=== PATIENT | male | born 1950 | race Caucasian/White ===

== ENCOUNTER → 2023-08-21 08:55 | Outpatient (REF) | payer MEDICARE, OTHER, SELFPAY ==
[2023-08-21 09:27] LABS: % Basophils 0.2 % (0-2); % Eosinophils 0.9 % (0-6); % Immature Granulocytes 0.4 % (0-0.5); % Lymphocytes 32.9 % (20.5-51.1); % Monocytes 8.1 % (1.7-9.3); % Neutrophils 57.5 % (42.2-75.2); Absolute Eosinophils 0.1 10^3/uL (0-0.7); Absolute Lymphocytes 1.9 10^3/uL (1.2-3.4); Absolute Monocytes 0.5 10^3/uL (0.1-0.6); Absolute Neutrophils 3.3 10^3/uL (1.4-6.5); Hematocrit 38.9 % (39.0-52.0); Hemoglobin 13.5 g/dL (13.0-18.0); Mean Corp Hgb Conc. 34.7 g/dL (33.0-37.0); Mean Corpuscular Hgb 30.9 pg (27.0-31.0); Mean Platelet Volume 10.1 fL (7.4-10.4); Nucleated Red Blood Cells % 0 % (-); Platelet Count 151 10^3/uL (130-400); Red Blood Cell Count 4.37 10^6/uL (4.70-6.10); Red Cell Dist. Width 12.6 % (11.5-14.5); White Blood Cell Count 5.7 10^3/uL (4.8-10.8)
[2023-08-21 09:31] LABS: Urine Albumin Negative (Neg - Trace); Urine Bilirubin Negative (Negative); Urine Character Clear (Clear); Urine Color Yellow; Urine Glucose Negative (Negative); Urine Ketone Negative (Negative); Urine Leukocyte Negative (Negative); Urine Nitrite Negative (Negative); Urine Occult Blood Negative (Negative); Urine Urobilinogen Negative (Neg - 1+)
[2023-08-21 10:25] LABS: Blood Urea Nitrogen 29 mg/dl (9-20); Calcium 9.5 mg/dl (8.4-10.2); Carbon Dioxide 27 mmol/L (22-30); Chloride 101 mmol/L (98-107); Glucose 101 mg/dl (70-99); Potassium 4.7 mmol/L (3.5-5.1); Sodium 138 mmol/L (135-145); eGFR > 60.00
[2023-08-21 10:57] LABS: PSA, Total - Diagnostic < 0.06 ng/ml (0.0-4.0)
== END ==
LOC: REG 08:55
PROVIDERS: ATTENDING PHYSICIAN Specialist; FAMILY PHYSICIAN Family Medicine
DX: R68.82 Decreased libido (principal); C61 Malignant neoplasm of prostate
CPT/HCPCS: 36415; 80048; 81003; 84153; 84403; 85025

== ENCOUNTER → 2023-11-13 09:42 | Outpatient (REF) | payer MEDICARE, OTHER, SELFPAY | LOC: RAD 09:42 | PROVIDERS: ATTENDING PHYSICIAN Family Medicine | DX: R06.00 Dyspnea, unspecified (principal) | CPT/HCPCS: 71046 ==

== ENCOUNTER 2024-01-30 10:35 | Day surgery (SDC) | payer MEDICARE, OTHER, SELFPAY ==
[2024-01-30 10:59] LABS: Hematocrit 39.5 % (39.0-52.0); Hemoglobin 14.1 g/dL (13.0-18.0); Mean Corp Hgb Conc. 35.7 g/dL (33.0-37.0); Mean Corpuscular Hgb 30.7 pg (27.0-31.0); Mean Corpuscular Volume 85.9 fL (80.0-94.0); Mean Platelet Volume 10.5 fL (7.4-10.4); Platelet Count 177 10^3/uL (130-400); Red Cell Dist. Width 12.7 % (11.5-14.5); White Blood Cell Count 5.8 10^3/uL (4.8-10.8)
[2024-01-30 11:11] LABS: Blood Urea Nitrogen 37 mg/dl (9-20); Calcium 9.5 mg/dl (8.4-10.2); Carbon Dioxide 25 mmol/L (22-30); Chloride 106 mmol/L (98-107); Glucose 108 mg/dl (70-99); Potassium 4.8 mmol/L (3.5-5.1); Sodium 138 mmol/L (135-145); eGFR > 60.00
[2024-01-30 11:30] VITALS: BP 131/70
[2024-01-30] MEDS: BENADRYL 50 MG IV (11:48)
[2024-01-30] MEDS: FLUSH (NSS) 1 FLUSH IV ×2 (11:49→18:43)
[2024-01-30] MEDS: SOLU-CORTEF 200 MG IV (11:53)
--- NOTE | 2024-01-30 13:57 | W.PN.UPDATE ---
Update Note
Progress Note Update
Patient presenting today for elective pacemaker implantation due to irreversible symptomatic bradycardia. Discussed at length regarding pacemaker implantation, benefits, risks, and laterality right versus left implantation. We discussed pacemaker
indications and device implant in detail. For implant there is an approximate 1:1000 risk of AK/stroke/ and a 1% risk of pneumothorax/tamponade/infection/bleeding. We also discussed post procedure implant restrictions including positions to
avoid with implant arm for first six weeks after implant as well as driving restrictions. I took time to answer all questions. Following thorough and thoughtful discussion, patient wishes to proceed with dual-chamber pacemaker implantation via left
sided implant. Patient states that he is left-handed however uses a manual stick shift car with his right side. We discussed precautions following device implantation, patient verbalized understanding and agreed with this plan. Patient
premedicated due to history of IV contrast dye. Again, following thoughtful discussion regarding pacemaker implantation, benefits, and risks, patient wishes to proceed, consent obtained.
--- NOTE | 2024-01-30 16:17 | ITS.CL.PACE ---
Visual Merchandiser - Pacemaker Implant
Pacemaker Implant
Procedure Report:
Primary Care Doctor: Dk Guerrero DO
Primary Relish Maker: Anny Felder MD
Procedure Date: 01/30/2024
Name of procedure:
1. Placement of a dual-chamber pacemaker with left bundle area pacing lead for conduction system pacing
2. Subclavian venography
History:
1. Patient is a pleasant 73-year-old male with a past medical history significant for paroxysmal atrial flutter, hypertension, dyslipidemia, history of tobacco use disorder, right bundle branch block, obesity, and symptomatic irreversible
bradycardia and sick sinus syndrome.
2. Please refer to H&P for complete history.
Indication:
Symptomatic sick sinus syndrome
Symptomatic irreversible bradycardia
Methods:
After informed consent was obtained, the patient was brought to the EP laboratory in a postabsorptive, nonsedated state. Peripheral IV access was established. Prophylactic antibiotics were administered prior to incision. Continuous ECG, blood
pressure, and pulse oximetry were initiated. Cardioversion patch electrodes were placed on the patient's chest and back. A grounding patch was applied to the skin. Sedation was administered by anesthesia services.
In order to define the extrathoracic portion of the subclavian vein and exclude significant venous obstruction or anomalous anatomy, subclavian venography was performed prior to the procedure. Using the patient's left peripheral IV, contrast was
injected and images were recorded. The left subclavian vein and SVC were found to be widely patent.
The left chest was prepared and draped in a sterile fashion. A time-out was performed. Local anesthesia was injected in the subcutaneous tissue in the infraclavicular area. An incision was made medial to the deltopectoral groove. The subcutaneous
tissue was dissected the level of the prepectoral fascia. A subcutaneous pocket was created. Under fluoroscopic guidance and with the assistance of the images from the venogram, 2 separate venipunctures were made using micropuncture and modified
Seldinger technique. These were performed in the extrathoracic portion of the subclavian vein. Guidewires were passed and two peel-away sheaths were placed, and used to advance leads into the circulation.
Fluoroscopy was used to determine likely anatomic site for left bundle branch pacing. The Medtronic C315 sheath was used to deliver the Medtronic 3830 Selectsecure pacing lead with the helix exposed just exposed from the sheath tip during continuous
monitoring when pacemapping the septum during gentle clockwise rotation to obtain a paced QRS morphology of a W pattern in lead V1. Once the suspected optimal site was identified, lead deployment was performed with several rapid rotations as paced
QRS morphology was intermittently monitored until a paced QRS complex in lead V1 demonstrated development of an R wave (qR or rSR). Unipolar pacing impedance dropped by approximately 100 ohms suggesting it had reached the left ventricular
subendocardial. Stable VEgm injury current is present throughout lead position and at end of case. Final unipolar pacing impedance is 950 Ohms. Unipolar pacing threshold is stable at 1.0 V @ 0.4 ms. The patient had pre-existing right bundle branch
block morphology at baseline. Final conduction system paced QRS complex duration is 90 ms, LVAT is 69 ms, and peak V5 -> peak V1 timing is 53 ms. The C315 sheath was slit under fluoroscopy ensuring lead position and stability.
Next, the right atrial lead was positioned in the right atrial appendage. Adequate sensing and pacing parameters were found, and no diaphragmatic stimulation was seen with high-output pacing. Both sheaths were split, and the leads were secured to
the fascia with Ethibond ties.
The pocket was flushed with antibiotic solution and hemostasis was assured. The generator was connected to the leads and placed inside the pocket. The device was sutured to the fascia. The wound was closed with 3 running layers of absorbable
suture, and steri-strips were applied. Dressing applied over steri-strips in standard fashion.
Following the procedure, the patient was taken to the recovery area in stable condition. A chest x-ray to be obtained post procedure as routine.
Lead parameters and device programming:
- RA Lead (Medtronic, Model 5076, #[id number]): Sensing 2.6 mV, Pacing threshold 0.75 V at 0.4 ms, Imp 630 Ohm
- RV Lead (Medtronic, Model 3830, #[id number]): Sensing 9.0 mV, Pacing threshold 0.625 V at 0.4 ms, Imp 780 Ohm
- Device: Medtronic, Model W1DR01 pacemaker (#[id number]), programmed AAIR to DDDR, mode switch on, lower rate 60, upper tracking rate 130
Conclusions:
1. Successful placement of a dual-chamber pacemaker with conduction system pacing (LBBAP)
2. Subclavian venography
Recommendations:
1. Admit
2.Chest x-ray, [facility] in AM
3. IV antibiotics while the patient is admitted.
4. OK to resume home medications as indicated
5. Pressure dressing to be removed in AM, aquacell to remain until wound check
6. Follow-up will be arranged in the office in 7-10 days post-discharge
Bogdan Peng DO
Clinical Cardiac Pigs Feet Finisher
cc: Anny Felder MD; Dk Guerrero, DO
[2024-01-30 16:35] VITALS: BP 114/78
--- NOTE | 2024-01-30 16:38 | CM ---
Chart reviewed. Patient is independent of ADLS, lives alone in a 2 [address], 2-3 [facility], 0 DME. Plan is for the patient to return home. CM to follow
--- NOTE | 2024-01-30 17:44 | PTCARENOTE ---
received pt post ppm, pt is aaox3, apaced on the monitor, hr in the 60s, vss. pt offers no complaints at this time. left arm immobilizer in place, dressing is CDI. pt educated on plan of care for the evening and pt verbalized understanding. call
petit within reach.
[2024-01-30] MEDS: ANCEF 5 IV (18:43)
[2024-01-30] MEDS: TYLENOL 650 MG PO (18:44)
--- NOTE | 2024-01-30 18:49 | PTCARENOTE ---
pt c/o pain left chest wall, Tylenol given, see documentation. pt educated on plan of care and pt verbalized understanding.
[2024-01-30 19:28] VITALS: BP 137/77
[2024-01-30] MEDS: PERCOCET 5/325 1 TABLET PO (21:51)
[2024-01-30] MEDS: WELLBUTRIN XL (24 hour extended release) 150 MG PO (22:21)
[2024-01-30] MEDS: PROTONIX 40 MG PO (22:21)
[2024-01-30 22:25] VITALS: BP 130/77
[2024-01-30] MEDS: DESYREL 75 MG PO (22:28)
--- NOTE | 2024-01-31 00:16 | PTCARENOTE ---
Pt. in NSR with some A-pacing on the monitor, VSS. Left chest wall dressing CDI without drainage, no S&S hematoma, circulation left hand intact. Complaining of mid back pain/spasms for which Tylenol was ineffective. Dr. PRASANNA Gamino notified, order
for Percocet obtained and administered; pt. fell asleep.
[2024-01-31 03:03] VITALS: BP 136/69
[2024-01-31] MEDS: ANCEF 5 IV (03:19)
[2024-01-31 03:48] LABS: Hematocrit 36.8 % (39.0-52.0); Hemoglobin 13.3 g/dL (13.0-18.0); Mean Corp Hgb Conc. 36.1 g/dL (33.0-37.0); Mean Corpuscular Volume 85.8 fL (80.0-94.0); Mean Platelet Volume 10.4 fL (7.4-10.4); Platelet Count 170 10^3/uL (130-400); Red Blood Cell Count 4.29 10^6/uL (4.70-6.10); Red Cell Dist. Width 12.9 % (11.5-14.5); White Blood Cell Count 10.8 10^3/uL (4.8-10.8)
[2024-01-31 04:11] LABS: Blood Urea Nitrogen 37 mg/dl (9-20); Calcium 9.5 mg/dl (8.4-10.2); Carbon Dioxide 23 mmol/L (22-30); Chloride 105 mmol/L (98-107); Estimated Creatinine Clearance 70 ml/min; Glucose 145 mg/dl (70-99); Potassium 4.5 mmol/L (3.5-5.1); Sodium 138 mmol/L (135-145); eGFR > 60.00
--- NOTE | 2024-01-31 07:27 | W.PN.CARDCBS ---
Today's Communication / Plan
-
stable for d/c
Impression / Plan
-
.
Primary Care Doctor: Dk Guerrero,
Primary Transmitter Chief: Anny Felder MD
Impression:
s/p dual-chamber pacemaker placement with left bundle area pacing lead for conduction system pacing Jan 30 2024
Symptomatic SSS and symptomatic bradycardia
Hx paroxysmal atrial flutter, s/p aflutter ablation 2018
Hyperlipidemia,
Hx Smoker, quit around 2006
RBBB
Calcium score of 0 2012
Pacer lead parameters and device programming:
- RA Lead (Medtronic, Model 5076, #[id number]): Sensing 2.6 mV, Pacing threshold 0.75 V at 0.4 ms, Imp 630 Ohm
- RV Lead (Medtronic, Model 3830, #[id number]): Sensing 9.0 mV, Pacing threshold 0.625 V at 0.4 ms, Imp 780 Ohm
- Device: Medtronic, Model W1DR01 pacemaker (#[id number]), programmed AAIR to DDDR, mode switch on, lower rate 60, upper tracking rate 130
07/08/2023 echocardiogram: Normal left ventricular size and function with EF 62%, mild mitral regurgitation and normal left atrium, normal right heart with normal pulmonary artery pressure, ascending aorta is 4 cm.
07/10/2023 nuclear stress test: Normal sestamibi perfusion imaging with soft tissue attenuation EF 67%
Plan:
Pacer functioning well.
IV abx while admitted as per EP
Ok to resume home meds as per EP
Continue aquacell until wound check
Chest xray and [facility].
Outpt follow up arranged.
Stable for d/c
Discussed with nursing.
Progress Note - Transmitter Chief
Subjective
Date of Service: January 31, 2024
Pt seen and examined. No complaints. No chest pain or shortness of breath.
Objective
Labs:
01/31/24 03:27
01/31/24 03:27
Labs
Hgb 13.3 g/dL (13.0-18.0) 01/31/24 03:27
Hct 36.8 % (39.0-52.0) L 01/31/24 03:27
Plt Count 170 10^3/uL (130-400) 01/31/24 03:27
Sodium 138 mmol/L (135-145) 01/31/24 03:27
Potassium 4.5 mmol/L (3.5-5.1) 01/31/24 03:27
BUN 37 mg/dl (9-20) H 01/31/24 03:27
Creatinine 1.1 mg/dL (0.7-1.3) 01/31/24 03:27
Glucose 145 mg/dl (70-99) H 01/31/24 03:27
Vital Signs and I&O:
Vital Signs
Temp Pulse Resp BP Pulse Ox
98.6 F 66 16 136/69 95
01/31/24 03:02 01/31/24 03:03 01/31/24 03:02 01/31/24 03:03 01/31/24 03:03
Vital Signs
Temp Pulse Resp BP Pulse Ox
98.6 F 66 16 136/69 95
01/31/24 03:02 01/31/24 03:03 01/31/24 03:02 01/31/24 03:03 01/31/24 03:03
Intake & Output
01/29/24 01/30/24 01/31/24 02/01/24
06:59 06:59 06:59 06:59
Intake Total 960 / 960
Balance 960 / 960
Physical Exam
Physical Exam
General: No acute distress, AAOX3
Neck: Negative JVD
Heart: Regular, Negative S3 positive S1/S2, Negative S4, No murmur
Lungs: CTA b/l, negative wheezes/rales/rhonchi
Abd: Positive BS, NT/ND, neg rebound/rigidity/guarding
Ext: Negative cyanosis/clubbing/edema
Neuro: nonfocal
[2024-01-31 07:28] VITALS: BP 146/81
--- NOTE | 2024-01-31 07:56 | W.DS.TRANS ---
DC Summary - Scientific Helper
-
Discharge Instructions:
Discharge Diagnosis/Procedures Pacemaker implant
Diet Low Cholesterol
Driving Restrictions No driving for 1 week
Bathing Restrictions OK to Shower
Instructions:
Stand-Alone Forms: DC Inst - Implanted Device
Changes to Home Medications: No
Discharge Medications:
DC Medications w/original date entered in [facility]
bupropion HCl 150 mg 24 hr tablet, extended release 150 mg PO HS 11/13/18
losartan 50 mg tablet 50 mg PO DAILY 11/13/18
trazodone 150 mg tablet 75 mg PO HSPRN PRN anxiety 11/13/18
esomeprazole magnesium 40 mg capsule,delayed release 40 mg PO DAILY 01/30/24
multivitamin 1 cap PO DAILY 01/30/24
tadalafil 5 mg tablet (Cialis) 5 mg PO DAILYPRN PRN ED 01/30/24
Home Medication Changes
Pending Results: No
[2024-01-31] MEDS: COZAAR 50 MG PO (07:57)
[2024-01-31] MEDS: PERCOCET 5/325 1 TABLET PO (08:50)
--- NOTE | 2024-01-31 09:19 | PTCARENOTE ---
pt continued to be apaced on the monitor, hr in the 60s, vss. pt c/o of 6/10 pain at PPM site, Percocet given as ordered, see MAR. pt educated on plan of care. d/c instructions read to pt and pt verbalized understanding. iv and tele monitor
removed. pt left with belongings from room, educational packet and instructions. pt left via wheelchair with staff member.
== END 2024-01-31 10:23 | disposition home or self-care (01) ==
LOC: CATH 10:35
PROVIDERS: Nurse Practitioner; ATTENDING PHYSICIAN Internal Medicine Cardiovascular Disease; FAMILY PHYSICIAN Family Medicine; OTHER PHYSICIAN Internal Medicine Cardiovascular Disease
DX: I49.5 Sick sinus syndrome (principal); I48.92 Unspecified atrial flutter; Z79.899 Other long term (current) drug therapy; I45.10 Unspecified right bundle-branch block; I10 Essential (primary) hypertension; E78.5 Hyperlipidemia, unspecified; K27.9 Peptic ulcer, site unspecified, unspecified as acute or chronic, without hemorrhage or perforation; K22.70 Barrett's esophagus without dysplasia; K21.00 Gastro-esophageal reflux disease with esophagitis, without bleeding; C61 Malignant neoplasm of prostate; Z85.46 Personal history of malignant neoplasm of prostate; I48.91 Unspecified atrial fibrillation
CPT/HCPCS: 33208; 71045; 80048; 85027; 93005; C1769; C1785; C1887; C1892; C1898

== ENCOUNTER → 2024-03-19 09:36 | Outpatient (REF) | payer MEDICARE, OTHER, SELFPAY | LOC: REG 09:36 | PROVIDERS: ATTENDING PHYSICIAN Family Medicine | DX: S16.1XXA Strain of muscle, fascia and tendon at neck level, initial encounter (principal) | CPT/HCPCS: 72050 ==

== ENCOUNTER → 2024-07-01 09:26 | Outpatient (REF) | payer MEDICARE, OTHER, SELFPAY ==
[2024-07-01 10:21] LABS: % Basophils 0.3 % (0-2); % Eosinophils 0.8 % (0-6); % Immature Granulocytes 0.3 % (0-0.5); % Lymphocytes 22.1 % (20.5-51.1); % Monocytes 7.5 % (1.7-9.3); Absolute Eosinophils 0.1 10^3/uL (0-0.7); Absolute Lymphocytes 1.7 10^3/uL (1.2-3.4); Absolute Monocytes 0.6 10^3/uL (0.1-0.6); Absolute Neutrophils 5.4 10^3/uL (1.4-6.5); Hematocrit 37.9 % (39.0-52.0); Hemoglobin 13.3 g/dL (13.0-18.0); Mean Corp Hgb Conc. 35.1 g/dL (33.0-37.0); Mean Corpuscular Volume 88.3 fL (80.0-94.0); Nucleated Red Blood Cells % 0 % (-); Platelet Count 148 10^3/uL (130-400); Red Blood Cell Count 4.29 10^6/uL (4.70-6.10); Red Cell Dist. Width 12.9 % (11.5-14.5); White Blood Cell Count 7.8 10^3/uL (4.8-10.8)
[2024-07-01 11:17] LABS: Urine Albumin Negative (Neg - Trace); Urine Bilirubin Negative (Negative); Urine Character Clear (Clear); Urine Color Yellow; Urine Glucose Negative (Negative); Urine Ketone Negative (Negative); Urine Leukocyte Negative (Negative); Urine Nitrite Negative (Negative); Urine Occult Blood Negative (Negative); Urine Specific Gravity 1.015 (<1.030); Urine Urobilinogen Negative (Neg - 1+)
[2024-07-01 11:58] LABS: ALT (SGPT) 34 U/L (0-50); AST (SGOT) 28 U/L (17-59); Albumin 4.5 g/dl (3.5-5.0); Alkaline Phosphatase 97 U/L (38-126); Blood Urea Nitrogen 27 mg/dl (9-20); Calcium 9.3 mg/dl (8.4-10.2); Carbon Dioxide 29 mmol/L (22-30); Chloride 101 mmol/L (98-107); Glucose 107 mg/dl (70-99); HDL Cholesterol 33 mg/dl; LDL Cholesterol, Calculated 97 mg/dl; Potassium 4.5 mmol/L (3.5-5.1); Sodium 137 mmol/L (135-145); Total Bilirubin 0.8 mg/dl (0.2-1.3); Total Cholesterol 159 mg/dl (50-199); Total Protein 7.2 g/dl (6.3-8.2); Triglyceride 148 mg/dl (10-149); Very Low Density Lipoprotein 29 mg/dl (0-30); eGFR > 60.00
[2024-07-01 12:04] LABS: PSA, Total - Diagnostic 0.08 ng/ml (0.0-4.0)
[2024-07-01 15:02] LABS: Urine Mucus Moderate
[2024-07-01 15:05] LABS: Urine Amorphous Seen; Urine Red Blood Cell 0-2 /HPF (0-2); Urine White Cell 0-2 /HPF (0-5)
== END ==
LOC: REG 09:26
PROVIDERS: ATTENDING PHYSICIAN Family Medicine
DX: I10 Essential (primary) hypertension (principal); N40.0 Benign prostatic hyperplasia without lower urinary tract symptoms
CPT/HCPCS: 36415; 80053; 80061; 81003; 81015; 84153; 85025

== ENCOUNTER → 2024-07-29 10:48 | Outpatient (REF) | payer MEDICARE, OTHER, SELFPAY | LOC: RAD 10:48 | PROVIDERS: ATTENDING PHYSICIAN Internal Medicine Cardiovascular Disease; FAMILY PHYSICIAN Family Medicine | DX: Z13.6 Encounter for screening for cardiovascular disorders (principal) | CPT/HCPCS: 76770 ==

== ENCOUNTER 2024-08-20 05:05 | Inpatient (IN) | payer MEDICARE, OTHER, SELFPAY ==
[2024-08-20] VITALS (49 sets, daily range): BP systolic 93–162; BP diastolic 59–95; PULSE 72–74; BMI 37.5; BMI 36.4
--- NOTE | 2024-08-20 01:58 | ED.GENMED ---
History of Present Illness
General
Chief Complaint: Heart Rate Problem
Source: patient
Time Seen by Provider: 08/20/24 01:41
Nursing documentation reviewed up to this point in time: agreed with
History of Present Illness
History of Present Illness:
Pleasant 73-year-old male presents with heart palpitations. He states that began around 11:30 PM when he went to go lie down. He states that the sensation was similar to previous episodes of atrial fibrillation. He has been cardioverted once
before. He has not maintained on a NOAC. He just saw a Anny Felder, cardiology last week. Has been battling an upper respiratory infection. Denies fever, chills but does report some nausea without vomiting.
Past History
Past History
ED Past Medical History: Cancer, GERD, HTN, Hypercholesterolemia, Other and Other
ED Past Surgical History: Other
Social History
Tobacco: Former smoker
Alcohol: Occasional
Drug: None
Living: with family
Employment: Employed
Family History
Family History: Other
Review of Systems
Review of Systems
Allergies reviewed?: Yes
All Other Systems: ROS reviewed and negative except as documented in HPI and ROS
Constitutional: Reports fatigue
EENT: Reports no symptoms
Respiratory: Reports no symptoms
Cardiac: Reports palpitations; Denies chest pain or diaphoresis
ABD/GI: Reports no symptoms
: Reports no symptoms
Musculoskeletal: Reports no symptoms
Skin: Reports no symptoms
Neurological: Reports no symptoms
Endocrine: Reports no symptoms
Hematologic/Lymphatic: Reports no symptoms
Psychiatric: Reports anxiety
Phy Exam
General Physical Exam
General Presentation: well appearing and no apparent distress
General Skin: warm and dry
General Habitus: normal
General Mental: alert
General Hydration: appears well hydrated
ENT Exam
ENT Exam: EOMI, pharynx normal, neck supple and normocephalic
Eye Exam
Eye Exam: PERRL, cornea clear and conjunctiva normal
Cardiovascular Exam
Cardiovascular Exam: no murmur, normal peripheral pulses, irregularly irregular and tachycardia
Pulmonary Exam
Pulmonary Exam: lungs clear, no respiratory distress, no rales, no crackles, no rhonchi, no stridor, no wheezing and no cough
Gastrointestinal Exam
Gastrointestinal Exam: normal bowel sounds, non tender, soft, no organomegaly, no pulsatile mass and non distended
Neurological Exam
Neurological Exam: alert, oriented x3, no motor deficits and speech normal
Musculoskeletal Exam
Musculoskeletal Exam: full ROM and no edema
Skin Exam
Skin Exam: normal color, warm/dry, no rash and no petechia
Psychiatric Exam
Psychiatric Exam: normal mood/affect
Course
Orders/Labs/Results
Orders:
Orders
08/20/24 01:19
Electrocardiogram (*1) Urgent
Reason for Study: Chest Pain
08/20/24 01:20
EKG- Treatment ONCE
08/20/24 01:41
Diltiazem HCl [Cardizem] 20 mg IV NOW STA
08/20/24 01:45
Diltiazem 125 mg/125 ml Nss [Cardizem] 125 mg in 125 ml IV PER PROTOCOL
Initial dose in mg/hr, then titrate:: 5
Titrate to keep:: Heart rate 80-100 bpm
Titrate by mg/hr:: 5 mg/hr
Frequency of titrations (minutes):: 15
Maximum dose in mg/hr:: 15
08/20/24 02:03
Complete Blood Count/With Diff Urgent
Comprehensive Metabolic Panel Urgent
PTT Urgent
Prothrombin Time Urgent
TSH Urgent
08/20/24 02:53
Propofol [Diprivan] 20 ml .ROUTE .STK-MED
08/20/24 02:57
0.9% Sodium Chloride 1000 ml [Nss] 1,000 ml IV BOLUS
08/20/24 03:33
Electrocardiogram (*1) Urgent
Reason for Study: Chest Pain
08/20/24 03:34
EKG- Treatment ONCE
08/20/24 03:50
Heparin 4,000 units IV NOW STA
Pharmacy Request to Place See Dose Instructions PO NOW STA
Discontinue all Active Warfarin orders?: Yes
Nursing to Place Non Medication Order As Directed
Physician Order: PTT 6 hours after initial start of Heparin infusion
08/20/24 04:00
Heparin 56393 Units/250 ml 25,000 units in 250 ml IV PER PROTOCOL
Weight to be used for heparin protocol in kilograms (kg):: 115
Protocol:: Cardiac Tx/Acute Coronary
PTT Goal Range to be used:: PTT 73 to 111 seconds
Order type:: Initial
INITIAL Infusion Dose (UNITS/KG/hr) & then follow protocol:: 12 units/kg/hr
Infusion Dose in UNITS/hr & then follow protocol (UNITS/hr):: 1,000
INFUSION RATE in mL/hr & then follow protocol (mL/hr):: 10
PTT less than or equal to 64 seconds:: Increase rate by 200 units/hr (+ 2 mL/hr)
PTT 64.1 to 72.9 seconds:: Increase rate by 100 units/hr (+ 1 mL/hr)
PTT 73 to 111 seconds:: Target Range. No change in rate.
PTT 111.1 to 130.9 seconds:: Decrease rate by 100 units/hr (- 1 mL/hr)
PTT 131 to 199.9 seconds:: HOLD for 1 hr. Then decrease rate by 200 units/hr (- 2 mL/hr)
PTT greater than or equal to 200 seconds:: HOLD for 2 hrs & Notify Provider. Then decrease by 200 units/hr (-
2 mL/hr)
Lab follow-up:: Each change, PTT q6h until 2 consecutive are therapeutic. Then PTT
daily.
Pharmacy Request to Place See Dose Instructions IV DIRECTED
Abnormal Lab Results
08/20/24
02:03
RBC 4.16 L 10^6/uL
(4.70-6.10)
Hct 37.2 L %
(39.0-52.0)
MCH 31.3 H pg
(27.0-31.0)
Absolute Monos (auto) 0.7 H 10^3/uL
(0.1-0.6)
APTT 40.2 H Sec
(23.4-35.0)
BUN 25 H mg/dl
(9-20)
Glucose 147 H mg/dl
(70-99)
Alkaline Phosphatase 156 H U/L
(38-126)
TSH 4.94 H uIU/ml
(0.47-4.68)
08/20/24 02:03
08/20/24 02:03
Vital Signs
Initial and Last Documented VS:
Initial Vital Signs
Temp Pulse Resp BP Pulse Ox
98.2 F 134 22 159/95 97
08/20/24 01:25 08/20/24 01:25 08/20/24 01:25 08/20/24 01:25 08/20/24 01:25
Last Documented Vital Signs
Temp Pulse Resp BP Pulse Ox
98.2 F 109 19 119/83 2
08/20/24 01:25 08/20/24 03:38 08/20/24 03:38 08/20/24 03:38 08/20/24 03:38
Procedures
Cardioversion
Indication:: Afib
Performed by:: Myself
Synchronized?: Yes
Energy Used: 200 joules
Number of attempts: 3
Successful?: No
ASA Risk Score: Class II
Any reaction or bad outcome to prior sedation/anesthesia?: No history of a reaction
Sedation level to be attained: moderate
Chart and allergies reviewed: Yes
Patient reassessed prior to sedation: Yes
Time out completed at (validating right patient & procedure): 03:21
History of difficult intubation: No
Airway free of obstruction: Yes
Patient has a gag reflex: Yes
Patient is able to open mouth: Yes
Patient has no dentures: Yes
Patient has no loose teeth: Yes
Medication administered by Provider during Moderate Sedation: IV Propofol (mg)
Total dose administered: 100
Time drug administered: 03:23
Start Time: 03:22
Stop Time: 03:38
MDM/Problems Addressed
Differential Diagnosis Includes:
Atrial fibrillation, atrial flutter
Chronic conditions affecting care:
Paroxysmal atrial flutter
*Critical Care Note
Total Time (30-74mins, 75-104mins- exclusive of procedures): 30 (Critical care statement: A total of 30 minutes of critical care time was provided for this patient. This time is separate from time utilized to perform the aforementioned documented
procedures. Aggregate critical care time includes only time during which I was engaged in work directl)
Patient Management
Discussion with other providers: Assembly Inspector (Dr. Lise Shelton, cardiology)
ED Attending Note
-
Portions of this chart may have been created with voice recognition software.� Occasional wrong word or��sound alike� substitutions may have occurred due to the inherent limitations of voice recognition software.
Discharge Plan
Departure
Patient Disposition: Admit
Date of Disposition: 08/20/24
Time of Disposition: 03:57
Admit to: Telemetry
Presentation/result/management discussed w/ accepting MD/DO: Hospitalist
Condition: Good
Discharge Problem:
Atrial fibrillation, Chest pain
Prescriptions:
No Action
losartan 50 MG tablet
50 mg PO DAILY
trazodone 150 MG tablet
75 mg PO HSPRN PRN (Reason: anxiety)
bupropion HCl 150 MG tablet extended release 24 hr
150 mg PO HS
multivitamin Capsule
1 cap PO DAILY
tadalafil [Cialis] 5 mg Tablet
5 mg PO DAILYPRN PRN (Reason: ED)
esomeprazole magnesium 40 mg Capsule,Delayed Release(Dr/Ec)
40 mg PO DAILY
Referrals:
UNKNOWN - PT DOES,NOT KNOW [Family Provider] -
Interventions
Interventions:
*Risk Screen - Suicide Last Done: 08/20/24 01:25
*General Assessment Last Done: 08/20/24 02:05
*Neglect/Abuse Screening Last Done: 08/20/24 02:05
*ED COVID-19 Vaccine History Last Done: 08/20/24 02:05
ED- Cardiac Assessment Last Done: 08/20/24 02:11
ED- Pulmonary Assessment Last Done: 08/20/24 02:11
Discharge Date and Time
Print Language: [email or web address]
[2024-08-20] MEDS: CARDIZEM 20 MG IV (02:01)
[2024-08-20] MEDS: CARDIZEM 125 IV (02:02)
[2024-08-20 02:11] LABS: % Basophils 0.3 % (0-2); % Eosinophils 1.3 % (0-6); % Immature Granulocytes 0.5 % (0-0.5); % Lymphocytes 35.1 % (20.5-51.1); % Monocytes 9.1 % (1.7-9.3); % Neutrophils 53.7 % (42.2-75.2); Absolute Eosinophils 0.1 10^3/uL (0-0.7); Absolute Lymphocytes 2.7 10^3/uL (1.2-3.4); Absolute Monocytes 0.7 10^3/uL (0.1-0.6); Absolute Neutrophils 4.1 10^3/uL (1.4-6.5); Hematocrit 37.2 % (39.0-52.0); Mean Corp Hgb Conc. 34.9 g/dL (33.0-37.0); Mean Corpuscular Hgb 31.3 pg (27.0-31.0); Mean Corpuscular Volume 89.4 fL (80.0-94.0); Mean Platelet Volume 9.8 fL (7.4-10.4); Nucleated Red Blood Cells % 0 % (-); Platelet Count 149 10^3/uL (130-400); Red Blood Cell Count 4.16 10^6/uL (4.70-6.10); Red Cell Dist. Width 12.6 % (11.5-14.5); White Blood Cell Count 7.6 10^3/uL (4.8-10.8)
[2024-08-20 02:23] LABS: INR 0.99; PT 13.6 Sec (11.4-14.6)
[2024-08-20 02:24] LABS: APTT 40.2 Sec (23.4-35.0)
[2024-08-20 02:33] LABS: ALT (SGPT) 43 U/L (0-50); AST (SGOT) 30 U/L (17-59); Albumin 4.2 g/dl (3.5-5.0); Alkaline Phosphatase 156 U/L (38-126); Blood Urea Nitrogen 25 mg/dl (9-20); Calcium 8.5 mg/dl (8.4-10.2); Carbon Dioxide 26 mmol/L (22-30); Chloride 102 mmol/L (98-107); Estimated Creatinine Clearance 89 ml/min; Glucose 147 mg/dl (70-99); Potassium 3.7 mmol/L (3.5-5.1); Sodium 138 mmol/L (135-145); Total Bilirubin 0.5 mg/dl (0.2-1.3); Total Protein 6.9 g/dl (6.3-8.2); eGFR > 60.00
[2024-08-20 03:11] LABS: TSH 4.94 uIU/ml (0.47-4.68)
[2024-08-20] MEDS: NSS 1000 IV (03:20)
[2024-08-20] MEDS: TYLENOL 1000 MG PO ×2 (04:03→14:35)
--- NOTE | 2024-08-20 04:48 | HPS.HSE ---
Family Physician
-
Family Physician: NOT KNOW UNKNOWN - PT DOES
Chief Complaint
-
Chest pain, Headache
History of Present Illness
Patient is a 73y M with PMH significant for prostate cancer, bradycardia and isolated episode of A-Fib / Flutter who presents to ED complaining of chest pain, shoulder pain, back pain, headache. Patient states that symptoms started this evening
around 11 - 11:30. He checked his pulse and noted that it was fast (130s) and irregular. He had no palpitations. Pos nausea / no emesis. No diaphoresis or shortness of breath.
Patient states that symptoms are similar to those he had with his prior episode of A-Fib in 2019. He was successfully cardioverted at that time and has been on no medication, etc since.
Patient presented to the ED this evening and was noted to be in A-Fib with heart rates in the 130s. Cardioversion was attempted here without success.
Medical History
Past Medical History
Past Medical History: Reports Other
Additional Past Medical History:
A-Fib / Flutter (2019)
Symptomatic Bradycardia
GERD / Keys's Esophagus
Prostate Cancer
Hypertension
Anxiety / Depression
Obesity
Past Surgical History: Reports Other
Additional Past Surgical History:
Prostatectomy
PPM Placement (01/2024)
Appendectomy
Cervical Fusion
Left Knee Surgery
Social History
Tobacco: Former Smoker (Quit smoking 15 years ago. Approx 30 pack years total use.)
Alcohol: None
Drug: None
Family History
Family History: Other (Father / Brother: Premature CAD. Mother: Thyroid Cancer, Breast Cancer)
Allergies / Home Medications
Allergies reflects when Allergies were last updated in [employer].
Home Medications with original date entered in [employer]
Allergy/Medication List:
Patient not aware of med doses.
States that he takes:
Nexium
'Blood Pressure Pill'
Wellbutrin
Review of Systems
-
History Source: Patient
A 12 point ROS was completed and negative except as noted: Yes
Constitutional: Reports Fatigue; Denies Fever or Chills
EENT: Denies Sore Throat
Respiratory: Denies Cough, Hemoptysis or Trouble Breathing
Cardiac: Reports Chest Pain; Denies Diaphoresis, Palpitations or Syncope
Abdomen/GI: Reports Nausea; Denies Abdominal Pain, Vomiting or Diarrhea
: Denies Dysuria, Frequency or Flank Pain
Musculoskeletal: Reports Muscle Pain; Denies Joint Pain or Edema
Neurological: Reports Headache; Denies Dizzy
Psych: Denies Depression or Anxiety
Physical Exam
Vital Signs
Vital Signs
Temp Pulse Resp BP Pulse Ox
98.2 F 109 19 119/83 2
08/20/24 01:25 08/20/24 03:38 08/20/24 03:38 08/20/24 03:38 08/20/24 03:38
Physical Exam
General: Other (73y M in mild distress due to headache.)
HEENT: Moist mucous membranes, PERRLA and Other (Thick neck.)
Respiratory: Clear; No Wheezes, Rales or Rhonchi
Cardiac: S1/S2, Irregular Rhythm and Tachycardia; No Murmur
GI: Soft, Non Tender, Non Distended and Normal Bowel Sounds
Musculoskeletal: No Clubbing, No Cyanosis and No Edema
Neuro: AO x 3 and Nonfocal/grossly intact
Laboratory Results
-
08/20/24 02:03
08/20/24 02:03
Laboratory Results
PT 13.6 Sec (11.4-14.6) 08/20/24 02:03
INR 0.99 08/20/24 02:03
APTT 40.2 Sec (23.4-35.0) H 08/20/24 02:03
Total Bilirubin 0.5 mg/dl (0.2-1.3) 08/20/24 02:03
AST 30 U/L (17-59) 08/20/24 02:03
ALT 43 U/L (0-50) 08/20/24 02:03
Alkaline Phosphatase 156 U/L (38-126) H 08/20/24 02:03
Impression/Plan
-
A/P: Patient is a 73y M with PMH significant for symptomatic bradycardia and prior / isolated episode of A-Fib who presents to ED complaining of chest pain, neck pain, headache, etc.
Atrial Fibrillation with Rapid Ventricular Rates
- Admit for further evaluation and treatment.
- No return to sinus rhythm despite DCCV in the ED.
- IV Cardizem started - continue and titrate as needed.
- IV heparin for now - likely transition to DOAC prior to discharge.
- Cardiology evaluation for additional recommendations.
Chest Pain
- Symptoms likely secondary to A-Fib as noted above, but need to rule out coronary ischemia.
- Check troponin now and serially.
- No evident / acute ischemic changes on EKG.
- Cardiology evaluation as noted above.
- IV heparin for now as noted above.
Headache
- Patient notes headache that started at home this evening / coincident with other symptoms.
- No focal neurologic deficits / complaints.
- Check CT head now and monitor for any clinical changes.
Benign Hypertension
- Stable. Patient unaware of med / dose.
- Hold for now while on Cardizem / any other rate controlling agents.
Obesity due to excess calories
- Affects all aspects of care,.
- Encourage healthy diet and increased exercise with goal of weight loss.
DVT Prophylaxis: On IV heparin
Code Status: Full
[2024-08-20] MEDS: HEPARIN 4000 UNITS IV (04:52)
[2024-08-20] MEDS: HEPARIN 25000 UNITS/250 ML IV (04:54)
[2024-08-20] MEDS: MORPHINE SULFATE 2 MG IV ×2 (05:35→11:49)
[2024-08-20 07:33] LABS: Hematocrit 36.1 % (39.0-52.0); Hemoglobin 12.2 g/dL (13.0-18.0); Mean Corp Hgb Conc. 33.8 g/dL (33.0-37.0); Mean Corpuscular Hgb 30.7 pg (27.0-31.0); Mean Corpuscular Volume 90.7 fL (80.0-94.0); Mean Platelet Volume 10.1 fL (7.4-10.4); Platelet Count 155 10^3/uL (130-400); Red Blood Cell Count 3.98 10^6/uL (4.70-6.10); Red Cell Dist. Width 12.7 % (11.5-14.5); White Blood Cell Count 8.1 10^3/uL (4.8-10.8)
--- NOTE | 2024-08-20 07:35 | W.PN.HOSP.TC ---
Addendum entered and electronically signed by Dina Saldivar MD 08/20/24 14:37:
patient with return of right-sided headache with right-sided neck pain. He has no mid-spine tenderness and full ROM neck. he has some mild paraspinal tenderness right side.
Suspect LR related to muscle tension.
stopped morphine (won't help)
-1G tylenol x 1 now
-heat pack (if available); can also try ice
-better positioning in bed
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
Original Note:
Today's Communication/Plan
-
IV heparin gtt
F/U Troponins
F/U further cardiology recommendations on AC and rate control
Assessment / Plan
Assessment / Plan
A/P: Patient is a 73y M with PMH significant for symptomatic bradycardia s/p PPM, isiolated episode of A-Fib s/p cardioversion, who presents to ED complaining of chest pain, neck pain, headache, similar to prior afib exacerbation. Reassuring
that he is in sinus rhythm this morning and those symptoms have resolved.
HEAD CT
IMPRESSION:
1. No acute intracranial abnormalities appreciated.
2. Mild small vessel ischemic change. 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
Atrial Fibrillation with Rapid Ventricular Rates
- s/p DCCV in the ED without return to sinus rhythm; now iN NSR this morning
- s/p IV Diltiazem, now off as patient is in sinus rhythm in 60's
- IV heparin for now - likely transition to DOAC prior to discharge.
- Cardiology consulted
Chest Pain - described as soreness
- Symptoms likely secondary to A-Fib as noted above, but need to rule out coronary ischemia.
- trend Troponin
- IV heparin gtt
Headache
- Patient notes headache that started at home this evening / coincident with other symptoms.
- No focal neurologic deficits / complaints.
- Head CT results above
- LR now resolved
Benign Hypertension
- Stable. Patient unaware of med / dose.
- Hold for now while on Cardizem / any other rate controlling agents.
- SBP 100's this morning
Obesity due to excess calories
- Affects all aspects of care,.
- Encourage healthy diet and increased exercise with goal of weight loss.
DVT Prophylaxis: On IV heparin
Code Status: Full
Anticipated Discharge: 24 - 48 hours
Subjective/Interval History
-
Date of Service: August 20, 2024
he is now in sinus rhythm
denies any current headache, back-ache or shoulder/chest pains
Objective Data
-
Labs:
Laboratory Results
08/20/24 08/20/24 08/20/24
02:03 06:35 10:58
WBC 7.6 8.1
Hgb 13.0 12.2 L
Hct 37.2 L 36.1 L
Plt Count 149 155
PT 13.6
INR 0.99
APTT 40.2 H Pending
Sodium 138 Pending
Potassium 3.7 Pending
Chloride 102 Pending
Carbon Dioxide 26 Pending
BUN 25 H Pending
Creatinine 0.9 Pending
Glucose 147 H Pending
Calcium 8.5 Pending
Total Bilirubin 0.5
AST 30
ALT 43
Alkaline Phosphatase 156 H
Vital Signs:
Vital Signs
Temp Pulse Resp BP Pulse Ox
98.1 F 104 16 114/70 96
08/20/24 04:30 08/20/24 04:08 08/20/24 04:08 08/20/24 04:08 08/20/24 04:08
Review of Systems
-
History Source: Patient
All other systems: Reviewed and negative
Physical Exam
-
General: No Apparent Distress and Conversant
HEENT: PERRLA
Respiratory: Clear to Auscultation; Negative Wheezes
Cardiac: Regular Rhythm and S1/S2
GI: Soft and Nontender
Musculoskeletal: No Edema
Skin: Warm and Dry; Negative Rash
Neuro: AO x 3
Psych: Calm
Data Reviewed
-
Diagnostic Radiology: Report Reviewed by me
Labs: Labs Reviewed by me
[2024-08-20 07:49] LABS: Blood Urea Nitrogen 24 mg/dl (9-20); Calcium 8.2 mg/dl (8.4-10.2); Carbon Dioxide 27 mmol/L (22-30); Chloride 102 mmol/L (98-107); Estimated Creatinine Clearance 89 ml/min; Glucose 104 mg/dl (70-99); HDL Cholesterol 31 mg/dl; LDL Cholesterol, Calculated 97 mg/dl; Potassium 4.3 mmol/L (3.5-5.1); Sodium 137 mmol/L (135-145); Total Cholesterol 141 mg/dl (50-199); Triglyceride 69 mg/dl (10-149); Very Low Density Lipoprotein 13 mg/dl (0-30); eGFR > 60.00
[2024-08-20 07:54] LABS: Troponin I 0.051 ng/ml
[2024-08-20] MEDS: LR 1000 IV (07:56)
[2024-08-20 08:01] LABS: Free T4 1.17 ng/dl (0.78-2.19)
--- NOTE | 2024-08-20 09:18 | CON.CAR ---
Addendum entered and electronically signed by Bogdan Peng DO 08/20/24 14:43:
I saw and examined the patient.
The Vacuum Kettle Cook's note was reviewed and I agree with the note.
Comment:
GEN: No distress, awake, Ox3, obese
HEENT: supple, anicteric, mmm
LUNGS: CTA, no wheezes/rales; occasional cough noted
CV: Reg, S1/S2, no murmur, rub or gallop; left CIED site well-healed
ABD: soft, BS+, NT/ND
EXT: Trace bilateral lower extremity edema, no clubbing or cyanosis
NEURO: Gross non-focal
SKIN: No rash, warm, dry, pink
Telemetry atrial fibrillation with conversion to a paced V sense, sinus rhythm
A/P as below
Troponin peak 0.05 down trended to 0.03; no reported chest pain likely acute myocardial injury in the setting of AF RVR
On IV heparin with plan to transition to oral anticoagulation given symptomatic paroxysmal atrial fibrillation
BNP 100; echocardiogram pending, cough unlikely related to heart failure
Pacemaker interrogation
Original Note:
Consultation
Consultation Request
Date/Time Consultation Requested: 08/20/2024
Date/Time Consultation Performed: 08/20/2024
Requesting Provider: Dr. Husain
Performing Provider: Yany Pacheco PA-C for Dr. Peng
Reason for Consultation: Atrial fibrillation, abnormal troponin
Medical History
-
History of Present Illness:
Patient is a 73-year-old male with past medical history significant for sick sinus syndrome/symptomatic bradycardia with dual-chamber Medtronic pacemaker January 2024, paroxysmal atrial flutter status post ablation 2018, former tobacco abuse,
hyperlipidemia who presents to emergency department 08/20/2024 with palpitations/rapid heartbeat, chest pain, shoulder and back pain. Patient reports he has been dealing with upper respiratory infection for approximately 3 weeks and completed a
course of antibiotics 2 weeks ago. He continues to have persistent dry cough where he gets into very bad coughing spells. Last evening around 11:30 PM he had a significant coughing episode and developed symptoms as noted above. He checked his
pulse and noted to be in the 130s and irregular prompting him to come to emergency department. EKG showed atrial fibrillation with rapid ventricular response. Patient not maintained on anticoagulation and was placed on IV heparin drip. They
attempted cardioversion x 3 which was unsuccessful. He was placed on IV diltiazem drip and then spontaneously converted to sinus rhythm. His chest discomfort, neck back/shoulder pain improved significantly. He did complain of headache and had
head CT which was negative except old lacunar stroke. Of note patient did have abnormal troponin initial 0.051 which was taken after attempted cardioversion x 3. Patient does admit to some recent weight gain.
At time of this evaluation patient continues to complain of dry persistent cough otherwise denies chest pain, shortness of breath, dizziness, lightheadedness or palpitations.
PMH:
Symptomatic SSS and symptomatic bradycardia
s/p dual-chamber pacemaker placement with left bundle area pacing lead for conduction system pacing Jan 30 2024
Hx paroxysmal atrial flutter
s/p aflutter ablation 2018
Hyperlipidemia
Hx Smoker, quit around 2006
RBBB
GERD
Peptic ulcer disease
Colitis
Obesity
Prostate cancer
Past Medical History
Past Medical History: Other (See HPI)
Past Surgical History: Appendectomy, Cardiac (Status post dual-chamber Medtronic pacemaker January 2024, atrial flutter ablation 2018), Orthopedic (Cervical fusion, knee surgery), Urological (Prostatectomy) and Other
Social History
Tobacco: Former Smoker
Alcohol: None
Drug: None
Living: Alone
Family History
Family History: CAD (Premature CAD in father and brother) and Cancer (Mother had thyroid and breast cancer)
Allergies / Home Medications
Allergy/AdvReac Type Severity Reaction Status Date / Time
Iodinated Contrast Media Allergy SWELLINBG Verified 08/20/24 01:32
[IV Dye, Iodine Containing]
prochlorperazine Allergy MUSCLE Verified 08/20/24 01:32
TWITCHING
Sulfa (Sulfonamide Allergy Unknown Verified 08/20/24 01:32
Antibiotics)
sulfamethoxazole Allergy Unknown Verified 08/20/24 01:32
trimethoprim Allergy Unknown Verified 08/20/24 01:32
�Medication �Instructions �Recorded �Confirmed �Type
bupropion HCl 150 mg 24 hr tablet, 150 mg PO BID 11/13/18 08/20/24 History
extended release
losartan 50 mg tablet 100 mg PO DAILY 11/13/18 08/20/24 History
esomeprazole magnesium 40 mg 40 mg PO DAILY 01/30/24 08/20/24 History
capsule,delayed release
tadalafil 5 mg tablet (Cialis) 5 mg PO DAILYPRN PRN ED 01/30/24 08/20/24 History
lifitegrast 5 % eye drops in a 1 drp BOTH EYES DAILY 08/20/24 08/20/24 History
dropperette (Xiidra)
psyllium husk 0.4 gram capsule 3.2 g PO BID 08/20/24 08/20/24 History
(Metamucil)
therapeutic multivitamin 1 tab PO BID 08/20/24 08/20/24 History
trazodone 50 mg tablet 150 mg PO HSPRN PRN sleep 08/20/24 08/20/24 History
vitamins A,C,E-hswx-txdelw 2,148 1 tab PO DAILY 08/20/24 08/20/24 History
mcg-113 mg-45 mg-17.4 mg tablet
(PreserVision AREDS)
Review of Systems
-
History Source: Patient
All other systems: Negative unless noted
Physical Exam
Vital Signs
Temp Pulse Resp BP Pulse Ox
98.1 F 62 15 104/65 98
08/20/24 04:30 08/20/24 07:30 08/20/24 07:30 08/20/24 07:30 08/20/24 07:30
GEN: No distress, awake, Ox3, obese
HEENT: supple, anicteric, mmm
LUNGS: CTA, no wheezes/rales; occasional cough noted
CV: Reg, S1/S2, no murmur, rub or gallop
ABD: soft, BS+, NT/ND
EXT: Trace bilateral lower extremity edema, no clubbing or cyanosis
NEURO: Gross non-focal
SKIN: No rash, warm, dry, pink
Lab Results
08/20/24 06:35
08/20/24 06:35
Troponin I 0.051 ng/ml H* 08/20/24 06:35
Troponin I Cancelled 08/20/24 06:35
Impression / Plan
-
Primary Care Doctor: Dk Guerrero, DO
Primary Municipal Clerk: Anny Felder MD
Impression:
Presentation 08/20/2024 with palpitations/rapid heartbeat, chest pain, shoulder and back pain
Paroxysmal atrial fibrillation with rapid ventricular response
Abnormal troponin
Symptomatic SSS and symptomatic bradycardia
s/p dual-chamber pacemaker placement with left bundle area pacing lead for conduction system pacing Jan 30 2024
Hx paroxysmal atrial flutter
s/p aflutter ablation 2018
Hyperlipidemia
Hx Smoker, quit around 2006
RBBB
GERD
Peptic ulcer disease
Colitis
Obesity
Prostate cancer
Echocardiogram 07/08/2023: Normal left ventricular size and function with EF 62%, mild mitral regurgitation and normal left atrium, normal right heart with normal pulmonary artery pressure, ascending aorta is 4 cm.
Nuclear stress test 07/10/2023: Normal sestamibi perfusion imaging with soft tissue attenuation EF 67%
Plan:
Presentation 08/20/2024 with palpitations/rapid heartbeat, chest pain, shoulder and back pain and patient was found to be in atrial fibrillation with rapid ventricular response. Not on anticoagulation
Paroxysmal atrial fibrillation with rapid ventricular response. This occurred in setting of acute coughing episode. Patient reports he had similar episode in past with illness.
-Attempted cardioversion x 3 in emergency department was unsuccessful. Patient placed on IV diltiazem drip and spontaneously converted to sinus rhythm with A paced rhythm
-Would consider starting AV liam blocking agent like diltiazem 120 mg daily. Patient is on losartan as outpatient and this can be decreased if blood pressure does not allow for diltiazem
-Was not on anticoagulation prior to admission. Now on IV heparin. Continue heparin for now but will need to transition to anticoagulation. Will consult case management for cost analysis.
-TSH 4.94 with compensated T4 at 1.17
-PPM interrogation
Chest pain which occurred in setting of atrial fibrillation with rapid ventricular response and resolved with orthodoxy of sinus rhythm.
-Abnormal troponin, Initial 0.051. This occurred in setting of A-fib with rapid ventricular response and after 3 attempted cardioversions. Suspect nonischemic myocardial injury. Would continue to monitor and trend
-Check echo.
-Last stress test in June 2023 showed normal perfusion
Ongoing cough after viral illness for several weeks
-Suspect ongoing inflammatory response as did not improve with antibiotics.
-Lungs clear
-Will add proBNP
HPI 08/20/2024:
Patient is a 73-year-old male with past medical history significant for sick sinus syndrome/symptomatic bradycardia with dual-chamber Medtronic pacemaker January 2024, paroxysmal atrial flutter status post ablation 2018, former tobacco abuse,
hyperlipidemia who presents to emergency department 08/20/2024 with palpitations/rapid heartbeat, chest pain, shoulder and back pain. Patient reports he has been dealing with upper respiratory infection for approximately 3 weeks and completed a
course of antibiotics 2 weeks ago. He continues to have persistent dry cough where he gets into very bad coughing spells. Last evening around 11:30 PM he had a significant coughing episode and developed symptoms as noted above. He checked his
pulse and noted to be in the 130s and irregular prompting him to come to emergency department. EKG showed atrial fibrillation with rapid ventricular response. Patient not maintained on anticoagulation and was placed on IV heparin drip. They
attempted cardioversion x 3 which was unsuccessful. He was placed on IV diltiazem drip and then spontaneously converted to sinus rhythm. Of note patient did have abnormal troponin initial 0.051 which was taken after attempted cardioversion x 3. His
chest discomfort, neck back/shoulder pain improved significantly. He did complain of headache and had head CT which was negative except old lacunar stroke.
At time of this evaluation patient continues to complain of dry persistent cough otherwise denies chest pain, shortness of breath, dizziness, lightheadedness or palpitations.
[2024-08-20 10:16] LABS: Glycohemoglobin (HgbA1c) 5.5 % (4.0-5.6)
[2024-08-20 11:11] LABS: NT-proBNP 110 pg/ml
[2024-08-20 12:14] LABS: APTT 54.3 Sec (23.4-35.0)
[2024-08-20 12:28] LABS: Troponin I 0.033 ng/ml
--- NOTE | 2024-08-20 15:18 | CM ---
Addendum entered by Irish Shrestha RN 08/20/24 15:25:
CM updated patient with cost. Patient stated that Xarelto is his preferred medication. Cost will be the same. CM updated cardiology.
Patient stated that he had had home care in the past but cannot remember the agency. Patient has also spent time in [facility] at 'some place in [place]'. Patient is active with his PCP. Patient uses [facility] for medication services.
PLAN: home
Original Note:
CM reviewed medical records. Patient's Eliquis is $47/month. CM will provide patient with coupon.
[2024-08-20] MEDS: WELLBUTRIN XL (24 hour extended release) 150 MG PO (15:34)
[2024-08-20] MEDS: PROTONIX 40 MG PO (15:34)
[2024-08-20] MEDS: COZAAR 50 MG PO (15:34)
[2024-08-20 19:43] LABS: APTT 60.3 Sec (23.4-35.0)
[2024-08-20 20:06] LABS: Troponin I 0.021 ng/ml
[2024-08-20] MEDS: DESYREL 150 MG PO (20:36)
[2024-08-20] MEDS: METAMUCIL, KONSYL 1 PACKET PO (20:36)
[2024-08-21] VITALS (7 sets, daily range): BP systolic 135–175; BP diastolic 68–98; PULSE 66–78; BMI 38.2
[2024-08-21] MEDS: HEPARIN 25000 UNITS/250 ML IV (01:29)
[2024-08-21 02:19] LABS: APTT 87.2 Sec (23.4-35.0)
[2024-08-21 09:03] LABS: Hematocrit 39.5 % (39.0-52.0); Hemoglobin 13.2 g/dL (13.0-18.0); Mean Corp Hgb Conc. 33.4 g/dL (33.0-37.0); Mean Corpuscular Hgb 30.7 pg (27.0-31.0); Mean Corpuscular Volume 91.9 fL (80.0-94.0); Mean Platelet Volume 9.3 fL (7.4-10.4); Platelet Count 159 10^3/uL (130-400); Red Cell Dist. Width 12.8 % (11.5-14.5); White Blood Cell Count 8.2 10^3/uL (4.8-10.8)
[2024-08-21 09:14] LABS: APTT 84.6 Sec (23.4-35.0)
[2024-08-21 09:22] LABS: Blood Urea Nitrogen 18 mg/dl (9-20); Calcium 8.9 mg/dl (8.4-10.2); Carbon Dioxide 29 mmol/L (22-30); Chloride 104 mmol/L (98-107); Estimated Creatinine Clearance 87 ml/min; Glucose 111 mg/dl (70-99); Magnesium 2.2 mg/dl (1.6-2.3); Potassium 4.7 mmol/L (3.5-5.1); Sodium 137 mmol/L (135-145); eGFR > 60.00
[2024-08-21] MEDS: PROTONIX PO (09:54)
--- NOTE | 2024-08-21 09:57 | CM ---
Patient seen at bedside.
IA completed
dx: Afib
PMH: prostate cancer, HTN, afib
Lives alone in a 2 story home, 2 steps to enter, 1st floor set up
PLOF: independent, no assistive device, drove self to [facility]
Denies DME
has had [facility] in past 15 yrs, rehab in past
Currenly going to outpatient PT at [place] [facility] in [place]
PCP: Dr. Dk Guerrero
Pharmacy: [facility] [place]
PLAN: home when medically stable, return to outpatient PT
[2024-08-21] MEDS: WELLBUTRIN XL (24 hour extended release) 150 MG PO ×2 (10:06→21:39)
[2024-08-21] MEDS: COZAAR 50 MG PO (10:06)
[2024-08-21] MEDS: METAMUCIL, KONSYL 1 PACKET PO ×2 (10:07→21:40)
[2024-08-21] MEDS: FLUSH (NSS) 1 FLUSH IV (10:07)
--- NOTE | 2024-08-21 11:03 | W.PN.HOSP.TC ---
Today's Communication/Plan
-
transition IV heparin gtt to Eliquis
Lasix 20mg IV x 1
Start Mucinex, nasal rinse, acapella
Assessment / Plan
Assessment / Plan
A/P: Patient is a 73y M with PMH significant for symptomatic bradycardia s/p PPM, isiolated episode of A-Fib s/p cardioversion, who presents to ED complaining of chest pain, neck pain, headache, similar to prior afib exacerbation. Symptoms
largely resolved with nondenominational of sinus rhythm.
HEAD CT
IMPRESSION:
1. No acute intracranial abnormalities appreciated.
2. Mild small vessel ischemic change. 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
TTE - EF 56%, mild MR, mild TR
Atrial Fibrillation with Rapid Ventricular Rates
- s/p DCCV in the ED without return to sinus rhythm; now iN NSR following morning
- s/p IV Diltiazem, now off as patient is in sinus rhythm in 60's
- s/p IV heparin gtt --> transition to Eliquis, patient OK with pricing
- Cardiology consult appreciated
Chest Pain - described as soreness
- Symptoms likely secondary to A-Fib as noted above, Troponin with minimal elevation - non-ischemic Myocardial injury (post cardioversion)
Iatrogenic volume overload
-TTE results above, EF 56%
-patient received fluids yesterday (into afternoon) - now off
-Lasix 20mg IV x 1
Headache
- Patient notes headache that started at home
- No focal neurologic deficits / complaints.
- Head CT results above
- Kenny returned - differential includes 2/2 neck/muscle tension versus sinus pressure (see below)
- tylenol PRN
Persistent cough post URI
-patient took Amoxicillin 2 weeks ago
-will start mucinex, nasal spray and acapella
Benign Hypertension
- ENGINE CLEANER Losartan resumed at 1/2 dose for now
Obesity due to excess calories
- Affects all aspects of care,.
- Encourage healthy diet and increased exercise with goal of weight loss.
DVT Prophylaxis: start Eliquis
Code Status: Full
Anticipated Discharge: 24 - 48 hours
Subjective/Interval History
-
Date of Service: August 21, 2024
he continues to have congestion and cough
some right sided nasal pressure
Objective Data
-
Labs:
Laboratory Results
08/21/24 08/21/24
02:02 08:42
WBC 8.2
Hgb 13.2
Hct 39.5
Plt Count 159
APTT 87.2 H 84.6 H
Sodium 137
Potassium 4.7
Chloride 104
Carbon Dioxide 29
BUN 18
Creatinine 0.9
Glucose 111 H
Calcium 8.9
Vital Signs:
Vital Signs
Temp Pulse Resp BP Pulse Ox
98.8 F 74 16 143/98 94
08/21/24 07:20 08/21/24 10:06 08/21/24 07:20 08/21/24 10:06 08/21/24 07:20
I&O
08/20/24 08/21/24 08/22/24
06:59 06:59 06:59
Intake Total 240 / 240
Balance 240 / 240
Review of Systems
-
History Source: Patient
All other systems: Reviewed and negative
Physical Exam
-
General: No Apparent Distress and Conversant
HEENT: PERRLA and Other (no significant maxillary sinus pressure pain )
Respiratory: Clear to Auscultation; Negative Wheezes
Cardiac: Regular Rhythm and S1/S2
GI: Soft and Nontender
Musculoskeletal: Other (b/l LE edema )
Skin: Warm and Dry; Negative Rash
Neuro: AO x 3
Psych: Calm
Data Reviewed
-
Diagnostic Radiology: Report Reviewed by me
Labs: Labs Reviewed by me
[2024-08-21] MEDS: LASIX 20 MG IV (12:40)
[2024-08-21] MEDS: OCEAN, SALINE MIST 1 SPRAYS NASAL (12:41)
[2024-08-21] MEDS: MUCINEX 600 MG PO ×2 (12:41→21:40)
[2024-08-21] MEDS: ELIQUIS 5 MG PO ×2 (12:41→21:40)
--- NOTE | 2024-08-21 15:43 | W.PN.CARDCBS ---
Today's Communication / Plan
-
Metoprolol succinate 25 mg daily
Continue Eliquis for stroke risk reduction
Single dose Lasix in a.m.
Impression / Plan
-
Primary Care Doctor: Dk Guerrero,
Primary Gear Cutting Machine Set Up Operator: Anny Felder MD
Impression:
Presentation 08/20/2024 with palpitations/rapid heartbeat, chest pain, shoulder and back pain
Paroxysmal atrial fibrillation with rapid ventricular response
Abnormal troponin
Symptomatic SSS and symptomatic bradycardia
s/p dual-chamber pacemaker placement with left bundle area pacing lead for conduction system pacing Jan 30 2024
Hx paroxysmal atrial flutter
s/p aflutter ablation 2018
Hyperlipidemia
Hx Smoker, quit around 2006
RBBB
GERD
Peptic ulcer disease
Colitis
Obesity
Prostate cancer
Echocardiogram 07/08/2023: Normal left ventricular size and function with EF 62%, mild mitral regurgitation and normal left atrium, normal right heart with normal pulmonary artery pressure, ascending aorta is 4 cm.
Echo08/20/2024: Normal LV RV, EF 56%, mild MR, mild TR PASP 20 to 25 mmHg
Nuclear stress test 07/10/2023: Normal sestamibi perfusion imaging with soft tissue attenuation EF 67%
Plan:
Presentation 08/20/2024 with palpitations/rapid heartbeat, chest pain, shoulder and back pain and patient was found to be in atrial fibrillation with rapid ventricular response. Not on anticoagulation
Paroxysmal atrial fibrillation with rapid ventricular response. This occurred in setting of acute coughing episode. Patient reports he had similar episode in past with illness.
-Attempted cardioversion x 3 in emergency department was unsuccessful. Patient placed on IV diltiazem drip and spontaneously converted to sinus rhythm with A paced rhythm, off IV
-Will start metoprolol succinate 25 mg daily.
-Was not on anticoagulation prior to admission. Heparin transition to p.o. Eliquis. Patient tolerating well 5 mg twice daily for stroke risk reduction
-TSH 4.94 with compensated T4 at 1.17
Chest pain which occurred in setting of atrial fibrillation with rapid ventricular response and resolved with yazidism of sinus rhythm.
-Abnormal troponin, Initial 0.051. This occurred in setting of A-fib with rapid ventricular response and after 3 attempted cardioversions. Suspect nonischemic myocardial injury. Would continue to monitor and trend
-Check echo.
-Last stress test in June 2023 showed normal perfusion
Ongoing cough after viral illness for several weeks
-Suspect ongoing inflammatory response as did not improve with antibiotics.
-Lungs clear
-BNP low however noted improvement in shortness of breath and cough following IV Lasix. Will give an additional dose of IV Lasix in a.m.
HPI 08/20/2024:
Patient is a 73-year-old male with past medical history significant for sick sinus syndrome/symptomatic bradycardia with dual-chamber Medtronic pacemaker January 2024, paroxysmal atrial flutter status post ablation 2018, former tobacco abuse,
hyperlipidemia who presents to emergency department 08/20/2024 with palpitations/rapid heartbeat, chest pain, shoulder and back pain. Patient reports he has been dealing with upper respiratory infection for approximately 3 weeks and completed a
course of antibiotics 2 weeks ago. He continues to have persistent dry cough where he gets into very bad coughing spells. Last evening around 11:30 PM he had a significant coughing episode and developed symptoms as noted above. He checked his
pulse and noted to be in the 130s and irregular prompting him to come to emergency department. EKG showed atrial fibrillation with rapid ventricular response. Patient not maintained on anticoagulation and was placed on IV heparin drip. They
attempted cardioversion x 3 which was unsuccessful. He was placed on IV diltiazem drip and then spontaneously converted to sinus rhythm. Of note patient did have abnormal troponin initial 0.051 which was taken after attempted cardioversion x 3. His
chest discomfort, neck back/shoulder pain improved significantly. He did complain of headache and had head CT which was negative except old lacunar stroke.
At time of this evaluation patient continues to complain of dry persistent cough otherwise denies chest pain, shortness of breath, dizziness, lightheadedness or palpitations.
Progress Note - Gear Cutting Machine Set Up Operator
Subjective
Date of Service: August 21, 2024
Patient seen and examined. No acute events overnight. Patient reporting mild shortness of breath and cough however improved. Denies any chest pain, lightheadedness, dizziness, weakness. Telemetry demonstrates a paced V sense, sinus rhythm.
Objective
Labs:
08/21/24 08:42
08/21/24 08:42
Labs
Hgb 13.2 g/dL (13.0-18.0) 08/21/24 08:42
Hct 39.5 % (39.0-52.0) 08/21/24 08:42
Plt Count 159 10^3/uL (130-400) 08/21/24 08:42
PT 13.6 Sec (11.4-14.6) 08/20/24 02:03
INR 0.99 08/20/24 02:03
APTT 84.6 Sec (23.4-35.0) H 08/21/24 08:42
Sodium 137 mmol/L (135-145) 08/21/24 08:42
Potassium 4.7 mmol/L (3.5-5.1) 08/21/24 08:42
BUN 18 mg/dl (9-20) 08/21/24 08:42
Creatinine 0.9 mg/dL (0.7-1.3) 08/21/24 08:42
Glucose 111 mg/dl (70-99) H 08/21/24 08:42
Troponins
08/20/24 08/20/24 08/20/24
06:35 06:35 11:41
Troponin I Cancelled 0.051 H* 0.033 D
08/20/24
19:21
Troponin I 0.021 D
Vital Signs and I&O:
Vital Signs
Temp Pulse Resp BP Pulse Ox
98.0 F 80 16 146/80 96
08/21/24 15:08 08/21/24 15:08 08/21/24 15:08 08/21/24 15:08 08/21/24 15:08
Vital Signs
Temp Pulse Resp BP Pulse Ox
98.0 F 80 16 146/80 96
08/21/24 15:08 08/21/24 15:08 08/21/24 15:08 08/21/24 15:08 08/21/24 15:08
Intake & Output
08/19/24 08/20/24 08/21/24 08/22/24
06:59 06:59 06:59 06:59
Intake Total 240 / 240
Balance 240 / 240
Physical Exam
Physical Exam
General: No acute distress, AAOX3
Neck: Negative JVD
Heart: Regular, Negative S3 positive S1/S2, Negative S4, No murmur; left CIED site well-healed
Lungs: Decreased breath sounds at bases, negative wheezes/rales/rhonchi
Abd: Positive BS, NT/ND, neg rebound/rigidity/guarding
Ext: Negative cyanosis/clubbing/edema
Neuro: nonfocal
[2024-08-21] MEDS: DESYREL 150 MG PO (21:40)
[2024-08-22] VITALS (8 sets, daily range): BP systolic 123–159; BP diastolic 70–91; PULSE 68–75; BMI 37.6
[2024-08-22] MEDS: LASIX 20 MG IV (06:15)
[2024-08-22 08:05] LABS: Hematocrit 38.9 % (39.0-52.0); Hemoglobin 13.2 g/dL (13.0-18.0); Mean Corp Hgb Conc. 33.9 g/dL (33.0-37.0); Mean Corpuscular Hgb 30.6 pg (27.0-31.0); Mean Corpuscular Volume 90.3 fL (80.0-94.0); Mean Platelet Volume 9.4 fL (7.4-10.4); Platelet Count 160 10^3/uL (130-400); Red Blood Cell Count 4.31 10^6/uL (4.70-6.10); Red Cell Dist. Width 12.6 % (11.5-14.5); White Blood Cell Count 8.2 10^3/uL (4.8-10.8)
[2024-08-22 08:33] LABS: Blood Urea Nitrogen 20 mg/dl (9-20); Calcium 9.2 mg/dl (8.4-10.2); Carbon Dioxide 33 mmol/L (22-30); Chloride 97 mmol/L (98-107); Estimated Creatinine Clearance 71 ml/min; Glucose 114 mg/dl (70-99); Potassium 4.8 mmol/L (3.5-5.1); Sodium 138 mmol/L (135-145); eGFR > 60.00
[2024-08-22] MEDS: COZAAR 50 MG PO (10:13)
[2024-08-22] MEDS: ELIQUIS 5 MG PO (10:13)
[2024-08-22] MEDS: TOPROL XL 25 MG PO (10:14)
[2024-08-22] MEDS: FLUSH (NSS) 1 FLUSH IV (10:14)
[2024-08-22] MEDS: OCEAN, SALINE MIST 1 SPRAYS NASAL (10:14)
[2024-08-22] MEDS: WELLBUTRIN XL (24 hour extended release) 150 MG PO (10:14)
[2024-08-22] MEDS: METAMUCIL, KONSYL 1 PACKET PO (10:14)
[2024-08-22] MEDS: MUCINEX 600 MG PO (10:14)
[2024-08-22] MEDS: PROTONIX PO (10:16)
--- NOTE | 2024-08-22 10:42 | W.PN.CARDCBS ---
Today's Communication / Plan
-
Okay to resume home dose losartan for blood pressure
Continue beta-emil, Eliquis
Stable from CV standpoint for discharge, follow-up outpatient as scheduled in 2-4 weeks
Impression / Plan
-
Primary Care Doctor: Dk Guerrero DO
Primary Nail Technician: Anny Felder MD
Impression:
Presentation 08/20/2024 with palpitations/rapid heartbeat, chest pain, shoulder and back pain
Paroxysmal atrial fibrillation with rapid ventricular response
Abnormal troponin
Symptomatic SSS and symptomatic bradycardia
s/p dual-chamber pacemaker placement with left bundle area pacing lead for conduction system pacing Jan 30 2024
Hx paroxysmal atrial flutter
s/p aflutter ablation 2018
Hyperlipidemia
Hx Smoker, quit around 2006
RBBB
GERD
Peptic ulcer disease
Colitis
Obesity
Prostate cancer
Echocardiogram 07/08/2023: Normal left ventricular size and function with EF 62%, mild mitral regurgitation and normal left atrium, normal right heart with normal pulmonary artery pressure, ascending aorta is 4 cm.
Echo08/20/2024: Normal LV RV, EF 56%, mild MR, mild TR PASP 20 to 25 mmHg
Nuclear stress test 07/10/2023: Normal sestamibi perfusion imaging with soft tissue attenuation EF 67%
Plan:
Presentation 08/20/2024 with palpitations/rapid heartbeat, chest pain, shoulder and back pain and patient was found to be in atrial fibrillation with rapid ventricular response. Not on anticoagulation
Paroxysmal atrial fibrillation with rapid ventricular response. This occurred in setting of acute coughing episode. Patient reports he had similar episode in past with illness.
-Attempted cardioversion x 3 in emergency department was unsuccessful. Patient placed on IV diltiazem drip and spontaneously converted to sinus rhythm with A paced rhythm, off IV
-Started on metoprolol succinate 25 mg daily., Tolerating well continue beta-emil.
-Was not on anticoagulation prior to admission. Heparin transition to p.o. Eliquis. Patient tolerating well 5 mg twice daily for stroke risk reduction
-TSH 4.94 with compensated T4 at 1.17
Chest pain which occurred in setting of atrial fibrillation with rapid ventricular response and resolved with buddhism of sinus rhythm.; No further episodes
-Abnormal troponin, Initial 0.051. This occurred in setting of A-fib with rapid ventricular response and after 3 attempted cardioversions. Suspect nonischemic myocardial injury. Would continue to monitor and trend
-Last stress test in June 2023 showed normal perfusion
Ongoing cough after viral illness for several weeks
-Suspect ongoing inflammatory response as did not improve with antibiotics.
-Lungs clear
-BNP low however noted improvement in shortness of breath and cough following IV Lasix. Will give an additional dose of IV Lasix in a.m.; no further episodes of shortness of breath, cough persistent
Hypertension, mildly elevated
Okay to resume home dose of losartan
HPI 08/20/2024:
Patient is a 73-year-old male with past medical history significant for sick sinus syndrome/symptomatic bradycardia with dual-chamber Medtronic pacemaker January 2024, paroxysmal atrial flutter status post ablation 2018, former tobacco abuse,
hyperlipidemia who presents to emergency department 08/20/2024 with palpitations/rapid heartbeat, chest pain, shoulder and back pain. Patient reports he has been dealing with upper respiratory infection for approximately 3 weeks and completed a
course of antibiotics 2 weeks ago. He continues to have persistent dry cough where he gets into very bad coughing spells. Last evening around 11:30 PM he had a significant coughing episode and developed symptoms as noted above. He checked his
pulse and noted to be in the 130s and irregular prompting him to come to emergency department. EKG showed atrial fibrillation with rapid ventricular response. Patient not maintained on anticoagulation and was placed on IV heparin drip. They
attempted cardioversion x 3 which was unsuccessful. He was placed on IV diltiazem drip and then spontaneously converted to sinus rhythm. Of note patient did have abnormal troponin initial 0.051 which was taken after attempted cardioversion x 3. His
chest discomfort, neck back/shoulder pain improved significantly. He did complain of headache and had head CT which was negative except old lacunar stroke.
At time of this evaluation patient continues to complain of dry persistent cough otherwise denies chest pain, shortness of breath, dizziness, lightheadedness or palpitations.
Progress Note - Nail Technician
Subjective
Date of Service: August 22, 2024
Patient seen and examined. No acute events overnight. Patient resting calmly in bed. Telemetry demonstrates sinus rhythm/V sensed V paced. Denies any chest pain, shortness of breath, palpitations, lightheadedness, dizziness, near-syncope,
syncope, or weakness. Does note mild cough persisting, nonproductive.
Objective
Labs:
08/22/24 07:42
08/22/24 07:42
Labs
Hgb 13.2 g/dL (13.0-18.0) 08/22/24 07:42
Hct 38.9 % (39.0-52.0) L 08/22/24 07:42
Plt Count 160 10^3/uL (130-400) 08/22/24 07:42
PT 13.6 Sec (11.4-14.6) 08/20/24 02:03
INR 0.99 08/20/24 02:03
APTT 84.6 Sec (23.4-35.0) H 08/21/24 08:42
Sodium 138 mmol/L (135-145) 08/22/24 07:42
Potassium 4.8 mmol/L (3.5-5.1) 08/22/24 07:42
BUN 20 mg/dl (9-20) 08/22/24 07:42
Creatinine 1.1 mg/dL (0.7-1.3) 08/22/24 07:42
Glucose 114 mg/dl (70-99) H 08/22/24 07:42
Troponins
08/20/24 08/20/24 08/20/24
06:35 06:35 11:41
Troponin I Cancelled 0.051 H* 0.033 D
08/20/24
19:21
Troponin I 0.021 D
Vital Signs and I&O:
Vital Signs
Temp Pulse Resp BP Pulse Ox
98.4 F 84 16 145/74 95
08/22/24 07:25 08/22/24 10:13 08/22/24 07:25 08/22/24 10:13 08/22/24 07:25
Vital Signs
Temp Pulse Resp BP Pulse Ox
98.4 F 84 16 145/74 95
08/22/24 07:25 08/22/24 10:13 08/22/24 07:25 08/22/24 10:13 08/22/24 07:25
Intake & Output
08/20/24 08/21/24 08/22/24 08/23/24
06:59 06:59 06:59 06:59
Intake Total 240 / 240 70 / 70
Output Total 250 / 250
Balance 240 / 240 -180 / -180
Physical Exam
Physical Exam
General: No acute distress, AAOX3
Neck: Negative JVD
Heart: Regular, Negative S3 positive S1/S2, Negative S4, No murmur; left CIED site well-healed
Lungs: CTABL, no wheezes, rhonchi, rales, crackles
Abd: Positive BS, NT/ND, neg rebound/rigidity/guarding
Ext: Negative cyanosis/clubbing/edema
Neuro: nonfocal
--- NOTE | 2024-08-22 10:52 | W.PN.HOSP.TC ---
Today's Communication/Plan
-
CXR
possible DC later today
Assessment / Plan
Assessment / Plan
A/P: Patient is a 73y M with PMH significant for symptomatic bradycardia s/p PPM, isiolated episode of A-Fib s/p cardioversion, who presents to ED complaining of chest pain, neck pain, headache, similar to prior afib exacerbation. Symptoms
largely resolved with faith of sinus rhythm.
HEAD CT
IMPRESSION:
1. No acute intracranial abnormalities appreciated.
2. Mild small vessel ischemic change. 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
TTE - EF 56%, mild MR, mild TR
Atrial Fibrillation with Rapid Ventricular Rates
- s/p DCCV in the ED without return to sinus rhythm; now iN NSR following morning
- s/p IV Diltiazem, now off as patient is in sinus rhythm in 60's
- s/p IV heparin gtt --> transition to Eliquis, patient OK with pricing
- Cardiology consult appreciated
- new start Metoprolol
Chest Pain - described as soreness
- Symptoms likely secondary to A-Fib as noted above, Troponin with minimal elevation - non-ischemic Myocardial injury (post cardioversion)
- resolved
Iatrogenic volume overload
-TTE results above, EF 56%
-patient received fluids yesterday (into afternoon) - now off
-Lasix 20mg IV x 2 doses
- euvolemic this morning
Headache
- Patient notes headache that started at home
- No focal neurologic deficits / complaints.
- Head CT results above
- Kenny returned - differential includes 2/2 neck/muscle tension versus sinus pressure (see below)
- tylenol PRN
Persistent cough post URI
-patient took Amoxicillin 2 weeks ago
-will start mucinex, nasal spray and acapella
- CXR now
Benign Hypertension
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
Obesity due to excess calories
- Affects all aspects of care,.
- Encourage healthy diet and increased exercise with goal of weight loss.
DVT Prophylaxis: start Eliquis
Code Status: Full
Anticipated Discharge: Within 24 hours
Subjective/Interval History
-
Date of Service: August 22, 2024
persistent cough
getting mucus out
no fevers
no pain
feels less swollen
Objective Data
-
Labs:
Laboratory Results
08/22/24
07:42
WBC 8.2
Hgb 13.2
Hct 38.9 L
Plt Count 160
Sodium 138
Potassium 4.8
Chloride 97 L
Carbon Dioxide 33 H
BUN 20
Creatinine 1.1
Glucose 114 H
Calcium 9.2
Vital Signs:
Vital Signs
Temp Pulse Resp BP Pulse Ox
98.4 F 84 16 145/74 95
08/22/24 07:25 08/22/24 10:13 08/22/24 07:25 08/22/24 10:13 08/22/24 07:25
I&O
08/21/24 08/22/24 08/23/24
06:59 06:59 06:59
Intake Total 240 / 240 70 / 70
Output Total 250 / 250
Balance 240 / 240 -180 / -180
Review of Systems
-
History Source: Patient
All other systems: Reviewed and negative
Physical Exam
-
General: No Apparent Distress and Conversant
HEENT: PERRLA and Other (no significant maxillary sinus pressure pain )
Respiratory: Clear to Auscultation; Negative Wheezes
Cardiac: Regular Rhythm and S1/S2
GI: Soft and Nontender
Musculoskeletal: Other (b/l LE edema )
Skin: Warm and Dry; Negative Rash
Neuro: AO x 3
Psych: Calm
Data Reviewed
-
Diagnostic Radiology: Report Reviewed by me
Labs: Labs Reviewed by me
[2024-08-22] MEDS: COZAAR 25 MG PO (12:07)
--- NOTE | 2024-08-22 14:01 | W.DS.TRANS ---
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
-
Discharge Instructions:
Sleep Apnea Risk Intermediate
Discharge Diagnosis/Procedures Atrial Fibrillation, persistent cough
Diet Regular
Activity As tolerated
Driving Restrictions As prior to admission
Bathing Restrictions None
Instructions:
Stand-Alone Forms:
Changes to Home Medications: Yes
Discharge Medications:
DC Medications w/original date entered in [employer]
bupropion HCl 150 mg 24 hr tablet, extended release 150 mg PO BID Mental Health/Anxiety 11/13/18
losartan 50 mg tablet 100 mg PO DAILY Blood Pressure 11/13/18
esomeprazole magnesium 40 mg capsule,delayed release 40 mg PO DAILY gerd 01/30/24
tadalafil 5 mg tablet (Cialis) 5 mg PO DAILYPRN PRN ED 01/30/24
lifitegrast 5 % eye drops in a dropperette (Xiidra) 1 drp BOTH EYES DAILY dry eye 08/20/24
psyllium husk 0.4 gram capsule (Metamucil) 3.2 g PO BID Gastrointestinal Issue 08/20/24
therapeutic multivitamin 1 tab PO BID Supplement 08/20/24
trazodone 50 mg tablet 150 mg PO HSPRN PRN sleep 08/20/24
vitamins A,C,P-ujij-jjwsum 2,148 mcg-113 mg-45 mg-17.4 mg tablet (PreserVision AREDS) 1 tab PO DAILY Supplement 08/20/24
apixaban 5 mg tablet (Eliquis) 5 mg PO BID #60 tabs 08/22/24
guaifenesin 600 mg tablet, extended release 12 hr 600 mg PO Q12 #20 tabs 08/22/24
metoprolol succinate 25 mg tablet,extended release 24 hr 25 mg PO DAILY #30 tabs 08/22/24
sodium chloride 0.65 % nasal spray aerosol (Saline Nasal) 1 spray intranasal QIDPRN PRN nasal congestion #44 mL 08/22/24
Home Medication Changes
You are newly started on Metoprolol XL 25mg daily
You are newly started on Eliquis for stroke prevention
Continue Mucinex and nasal spray for congestion
Pending Results: No
--- NOTE | 2024-08-22 14:05 | W.DS.TRANS ---
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
-
Discharge Instructions:
Sleep Apnea Risk Intermediate
Discharge Diagnosis/Procedures Atrial Fibrillation, persistent cough
Diet Regular
Activity As tolerated
Driving Restrictions As prior to admission
Bathing Restrictions None
Instructions:
Stand-Alone Forms:
Changes to Home Medications: Yes
Discharge Medications:
DC Medications w/original date entered in [employer]
bupropion HCl 150 mg 24 hr tablet, extended release 150 mg PO BID Mental Health/Anxiety 11/13/18
losartan 50 mg tablet 100 mg PO DAILY Blood Pressure 11/13/18
esomeprazole magnesium 40 mg capsule,delayed release 40 mg PO DAILY gerd 01/30/24
tadalafil 5 mg tablet (Cialis) 5 mg PO DAILYPRN PRN ED 01/30/24
lifitegrast 5 % eye drops in a dropperette (Xiidra) 1 drp BOTH EYES DAILY dry eye 08/20/24
psyllium husk 0.4 gram capsule (Metamucil) 3.2 g PO BID Gastrointestinal Issue 08/20/24
therapeutic multivitamin 1 tab PO BID Supplement 08/20/24
trazodone 50 mg tablet 150 mg PO HSPRN PRN sleep 08/20/24
vitamins A,C,L-cxni-dlbnmt 2,148 mcg-113 mg-45 mg-17.4 mg tablet (PreserVision AREDS) 1 tab PO DAILY Supplement 08/20/24
apixaban 5 mg tablet (Eliquis) 5 mg PO BID #60 tabs 08/22/24
guaifenesin 600 mg tablet, extended release 12 hr 600 mg PO Q12 #20 tabs 08/22/24
metoprolol succinate 25 mg tablet,extended release 24 hr 25 mg PO DAILY #30 tabs 08/22/24
sodium chloride 0.65 % nasal spray aerosol (Saline Nasal) 1 spray intranasal QIDPRN PRN nasal congestion #44 mL 08/22/24
Home Medication Changes
You are newly started on Metoprolol XL 25mg daily
You are newly started on Eliquis for stroke prevention
Continue Mucinex and nasal spray for congestion
Pending Results: No
--- NOTE | 2024-08-22 14:05 | W.DCSUMMARY ---
Discharge Summary
Discharge Data
Date of Admission: 08/20/24
Date of Discharge: 08/22/24
-
Pending Results: No
Hospital Course
Discharging Physician : Dr. Dina Saldivar
Disposition : Home
Principal Discharge diagnosis : Atrial Fibrillation, Post Viral Cough
Hospital Course :
Mr. Derrick Bean is a 73 yo man with PMH significant for symptomatic bradycardia s/p PPM, isolated episode of A-Fib s/p cardioversion, who presents to ED complaining of chest pain, neck pain, headache, similar to prior afib exacerbation.
Triage vitals significant for HR 134, BP 159/95. Cardioversion attempted in ER without return to sinus.
He was admitted to medicine with Cardiology consulting. Patient later converted to sinus rhythm overnight. Reassuring that while in sinus rhythm patient's symptoms resolved. He was placed on IV heparin gtt. Troponin with minimal elevation 2/2
cardioversion. TTE obtained showing EF 56%, no WMA. He was started on oral Metoprolol and transitioned to Eliquis. Remained in sinus rhythm remainder of hospital stay and will follow up closely with his outpatient trial court justice, Dr. Felder.
Patient had persistent cough post recent URI. CXR without e/o pneumonia. He was given mucinex, nasal spray. No fevers or leukocytosis in-house. He will follow up with PCP this week.
Hospital course c/b iatrogenic fluid overload responded well to Lasix. No need for diuretics on discharge.
Time spent on discharge was 32 minutes.
Important imaging findings :
CXR
IMPRESSION:
No acute disease of the chest
TTE 08/20/24
CONCLUSIONS
Normal left ventricular size, wall thickness and systolic function.
LV ejection fraction is 56% by volumetric assessment.
Normal right ventricular size and function.
Normal right atrium.
Mild mitral regurgitation.
No aortic regurgitation is seen.
Mild tricuspid regurgitation.
Assuming a right atrial pressure of 3 mmHg.
Estimated pulmonary artery pressure of 20-25 mmHg.
Structurally normal pulmonic valve without significant stenosis or
regurgitation.
The IVC is of normal size and demonstrates normal respiratory variation.
No significant change compared 06/2023 echocardiogram
Indications:
A-FIB
Procedure findings :
Discharge Plan
-
Patient Disposition: Home (Routine Discharge)
Discharge Diagnosis/Procedures: Atrial Fibrillation, persistent cough
Diet: Regular
Activity: As tolerated
Driving Restrictions: As prior to admission
Bathing Restrictions: None
Referrals:
Anny Felder MD [Active] - in two to four weeks
UNKNOWN - PT DOES,NOT KNOW [Family Provider] - in less than 1 week
Additional Discharge Medication Instructions: You are newly started on Metoprolol XL 25mg daily
You are newly started on Eliquis for stroke prevention
Continue Mucinex and nasal spray for congestion
Prescriptions:
New
Eliquis 5 mg Tablet
5 mg PO BID Qty: 60 1RF
guaifenesin 600 mg Tablet Extended Release 12hr
600 mg PO Q12 Qty: 20 0RF
Saline Nasal 0.65 % Aerosol,Boling
1 spray intranasal QIDPRN PRN (Reason: nasal congestion) Qty: 44 0RF
metoprolol succinate 25 mg Tablet Extended Release 24 Hr
25 mg PO DAILY Qty: 30 0RF
Continued
losartan 50 MG tablet
100 mg PO DAILY
bupropion HCl 150 MG tablet extended release 24 hr
150 mg PO BID
tadalafil [Cialis] 5 mg Tablet
5 mg PO DAILYPRN PRN (Reason: ED)
esomeprazole magnesium 40 mg Capsule,Delayed Release(Dr/Ec)
40 mg PO DAILY
trazodone 50 mg Tablet
150 mg PO HSPRN PRN (Reason: sleep)
therapeutic multivitamin Tablet
1 tab PO BID
PreserVision AREDS 2,148 mcg-113 mg-45 mg-17.4mg Tablet
1 tab PO DAILY
psyllium husk [Metamucil] 0.4 gram Capsule
3.2 g PO BID
Xiidra 5 % Dropperette
1 drp BOTH EYES DAILY
Discharge Orders:
Discharge Patient (As Directed); Ordered 08/22/24
Ordered By: Dina Saldivar
Discharge Date and Time
Print Language: ARMENIAN
--- NOTE | 2024-08-22 14:27 | CM ---
Patient seen at bedside.
IMM explained & signed. In chart
Patient current with [facility]
PLAN: home, SCOTTY with [facility] therapy
daughter to transport
--- NOTE | 2024-08-22 14:47 | PTCARENOTE ---
Pt ambulated throughout unit x 2 with just supervision from staff, no contact guard. No difficulty noted, steady gait, no dizziness. Slight DUONG with exertion, SpO2 98-97% on RA with exertion. SR on telemetry with ambulation HR 80s. Made Dr. Saldivar
aware of above.
--- NOTE | 2024-08-23 15:36 | PN.CDI ---
CDI
- -
CDI:
Physician Documentation Request
Admit Date: 08/20/24 05:05
Dear Doctor Janna,
Patient admitted for management of atrial fibrillation.
08/20 patient received IV bolus of 1000 ml NS.
08/21 progress note physical exam 'b/l LE edema'
Patient received IV lasix on 08/21 and on 08/22
08/22 cardiology note state 'BNP low however noted improvement in shortness of breath and cough following IV Lasix. Will give an additional dose of IV Lasix in a.m.; no further episodes of shortness of breath, cough persistent'
08/20 Echo shows an EF of 56%
Could you please clarify the diagnosis associated with the administration of IV lasix.
Heart failure (please specify type and acuity)
Volume overload only
Other
Use of terms such as suspected, likely, concern for, or probable (associated with a specific diagnosis that is being evaluated, monitored, or treated as if it exists) are acceptable and can be coded in the inpatient setting, when documented at the
time of discharge.
Thank you,
Ange Lazo RN, BSN
CDI Specialist
tiger text
Please use your independent medical judgment in providing your response.
== END 2024-08-22 16:54 | disposition home or self-care (01) | DRG 309 ==
LOC: 4 EAST ACU 05:05
PROVIDERS: ADMITTING PHYSICIAN Hospitalist; ATTENDING PHYSICIAN Student in an Organized Health Care Education/Training Program; EMERGENCY PHYSICIAN Student in an Organized Health Care Education/Training Program; OTHER PHYSICIAN Internal Medicine Cardiovascular Disease
PROC: 5A2204Z Restoration of Cardiac Rhythm, Single (ICD-10-PCS; 2024-08-20)
DX: I48.0 Paroxysmal atrial fibrillation (principal); I5A Non-ischemic myocardial injury (non-traumatic); I49.5 Sick sinus syndrome; I10 Essential (primary) hypertension; K21.9 Gastro-esophageal reflux disease without esophagitis; E66.09 Other obesity due to excess calories; G44.209 Tension-type headache, unspecified, not intractable; I45.10 Unspecified right bundle-branch block; E87.70 Fluid overload, unspecified; E78.00 Pure hypercholesterolemia, unspecified; R05.8 Other specified cough; F41.9 Anxiety disorder, unspecified; F32.A Depression, unspecified; Z79.899 Other long term (current) drug therapy; Z95.0 Presence of cardiac pacemaker; Z91.041 Radiographic dye allergy status; Z88.3 Allergy status to other anti-infective agents; Z88.2 Allergy status to sulfonamides; Z87.891 Personal history of nicotine dependence; Z86.73 Personal history of transient ischemic attack (TIA), and cerebral infarction without residual deficits; Z85.46 Personal history of malignant neoplasm of prostate; Z82.49 Family history of ischemic heart disease and other diseases of the circulatory system; Z68.37 Body mass index [BMI] 37.0-37.9, adult
CPT/HCPCS: 70450; 71046; 80048; 80053; 80061; 83036; 83735; 83880; 84439; 84443; 84484; 85025; 85027; 85610; 85730; 92960; 93005; 93306; 96361; 96365; 96366; 96375; 99152; 99291

== ENCOUNTER → 2024-09-29 09:52 | Outpatient (REF) | payer MEDICARE, OTHER, SELFPAY ==
[2024-09-29 10:45] LABS: PT 20.5 Sec (11.4-14.6)
[2024-09-29 10:57] LABS: % Basophils 0.2 % (0-2); % Immature Granulocytes 0.4 % (0-0.5); % Lymphocytes 19.3 % (20.5-51.1); % Monocytes 1.3 % (1.7-9.3); % Neutrophils 78.8 % (42.2-75.2); Absolute Lymphocytes 1.1 10^3/uL (1.2-3.4); Absolute Monocytes 0.1 10^3/uL (0.1-0.6); Absolute Neutrophils 4.3 10^3/uL (1.4-6.5); Hematocrit 38.6 % (39.0-52.0); Hemoglobin 13.6 g/dL (13.0-18.0); Mean Corp Hgb Conc. 35.2 g/dL (33.0-37.0); Mean Corpuscular Hgb 31.3 pg (27.0-31.0); Mean Corpuscular Volume 88.7 fL (80.0-94.0); Mean Platelet Volume 10.5 fL (7.4-10.4); Nucleated Red Blood Cells % 0 % (-); Platelet Count 175 10^3/uL (130-400); Red Blood Cell Count 4.35 10^6/uL (4.70-6.10); Red Cell Dist. Width 12.3 % (11.5-14.5); White Blood Cell Count 5.4 10^3/uL (4.8-10.8)
[2024-09-29 11:42] LABS: ALT (SGPT) 33 U/L (0-50); AST (SGOT) 25 U/L (17-59); Albumin 4.5 g/dl (3.5-5.0); Alkaline Phosphatase 115 U/L (38-126); Blood Urea Nitrogen 39 mg/dl (9-20); Carbon Dioxide 24 mmol/L (22-30); Chloride 104 mmol/L (98-107); Glucose 148 mg/dl (70-99); Potassium 4.7 mmol/L (3.5-5.1); Sodium 140 mmol/L (135-145); Total Bilirubin 0.5 mg/dl (0.2-1.3); Total Protein 7.4 g/dl (6.3-8.2); eGFR > 60.00
== END ==
LOC: SDSPAT 09:52
PROVIDERS: ATTENDING PHYSICIAN Internal Medicine Cardiovascular Disease; FAMILY PHYSICIAN Family Medicine; OTHER PHYSICIAN Internal Medicine Cardiovascular Disease
DX: I48.0 Paroxysmal atrial fibrillation (principal); I48.91 Unspecified atrial fibrillation
CPT/HCPCS: 36415; 75572; 80053; 83735; 85025; 85610; 86850; 86900; 86901; Q9967

== ENCOUNTER 2024-10-01 15:15 | Emergency (ER) | payer MEDICARE, OTHER, SELFPAY ==
[2024-10-01 15:37] VITALS: BP 122/81
[2024-10-01 16:11] LABS: % Basophils 0.1 % (0-2); % Eosinophils 0.7 % (0-6); % Immature Granulocytes 0.4 % (0-0.5); % Lymphocytes 35.6 % (20.5-51.1); % Neutrophils 54.2 % (42.2-75.2); Absolute Eosinophils 0.1 10^3/uL (0-0.7); Absolute Monocytes 0.8 10^3/uL (0.1-0.6); Absolute Neutrophils 4.6 10^3/uL (1.4-6.5); Hematocrit 38.5 % (39.0-52.0); Hemoglobin 13.5 g/dL (13.0-18.0); Mean Corp Hgb Conc. 35.1 g/dL (33.0-37.0); Mean Corpuscular Hgb 31.4 pg (27.0-31.0); Mean Corpuscular Volume 89.5 fL (80.0-94.0); Mean Platelet Volume 9.8 fL (7.4-10.4); Nucleated Red Blood Cells % 0 % (-); Platelet Count 177 10^3/uL (130-400); Red Cell Dist. Width 12.8 % (11.5-14.5); White Blood Cell Count 8.4 10^3/uL (4.8-10.8)
[2024-10-01 16:27] LABS: ALT (SGPT) 34 U/L (0-50); AST (SGOT) 28 U/L (17-59); Albumin 4.3 g/dl (3.5-5.0); Alkaline Phosphatase 100 U/L (38-126); Blood Urea Nitrogen 31 mg/dl (9-20); Calcium 9.1 mg/dl (8.4-10.2); Carbon Dioxide 25 mmol/L (22-30); Chloride 104 mmol/L (98-107); Glucose 98 mg/dl (70-99); Potassium 4.5 mmol/L (3.5-5.1); Sodium 137 mmol/L (135-145); Total Bilirubin 0.4 mg/dl (0.2-1.3); Total Protein 6.9 g/dl (6.3-8.2); eGFR > 60.00
[2024-10-01 16:38] LABS: Troponin I < 0.012 ng/ml
== END 2024-10-01 19:06 ==
LOC: EMR 15:15
PROVIDERS: Emergency Medicine
DX: M54.2 Cervicalgia (principal); R07.89 Other chest pain; R06.02 Shortness of breath; M54.9 Dorsalgia, unspecified; Z53.21 Procedure and treatment not carried out due to patient leaving prior to being seen by health care provider
CPT/HCPCS: 99281; 80053; 84484; 85025; 93005

== ENCOUNTER 2024-10-11 06:02 | Day surgery (SDC) | payer MEDICARE, OTHER, SELFPAY ==
[2024-10-11] VITALS (13 sets, daily range): BP systolic 108–120; BP diastolic 60–90; BMI 36.9
--- NOTE | 2024-10-11 07:39 | ITS.CL.ABL ---
Draw End Hand - Ablation
Ablation
Procedure Report:
ELECTROPHYSIOLOGIC STUDY AND POSSIBLE ABLATION
DATE: October 11, 2024
Primary Care Provider: Dr Dk Guerrero
Primary Parking Meter Installer: Dr Anny Felder
INDICATION:
Symptomatic Atrial Fibrillation.
Paroxysmal
HISTORY: See H and P.
Symptomatic AF, poorly controlled with attempted medical therapy.
He has symptomatic bradycardia from SSS and�underwent dual-chamber pacemaker [employer] 01/30/2024.�
He has had increasing burden of symptomatic atrial fibrillation and device diagnostics have shown 14% A-fib burden.
Most recently, he was hospitalized at on 08/20/2024 with palpitations/rapid heartbeat, chest pain, shoulder and back pain and patient was found to be in atrial fibrillation with rapid ventricular response.� Attempted cardioversion x 3 in emergency
department were unsuccessful and he was placed on IV diltiazem, later spontaneously converting to sinus rhythm.�
Of note, he previously underwent cavotricuspid isthmus dependent right atrial flutter ablation in 2019 and has had no recurrences of typical atrial flutter.
Echocardiogram August 20, 2024 finds normal left ventricular size and function with ejection fraction of 55%, normal RV size and function, there is normal size right and left atria and no significant valvular disease.
HAS-BLED: 1
Age
CHADSVASc: 3
HTN
Age
PRESENTING RHYTHM: SR
HISTORY: See H and P.
Symptomatic AF, poorly controlled with attempted medical therapy.
ANTICOAGULATION: Rivaroxaban 20 mg daily
'TIME-OUT': called and confirmed.
SEDATION/ANESTHESIA: provided via the anesthesia department using general anesthesia.
PROCEDURE:
Ultrasound Guidance with real-time visualization of needle insertion and vessel patency performed by me for femoral venous Vascular Access.
Under real-time US guidance, the needle was advanced with negative pressure into the vein. The needle was seen entering the vessel lumen with a good return of dark red flow, the syringe was removed, non-pulsatile, dark red blood low was noted and
the wire was passed without difficulty, then the needle was removed. US confirmed the wire was in the vein, not going into an artery,
Images were taken and saved for the patient's permanent record. Imaging findings typical femoral venous anatomy. Direct visualization of needle puncture into the femoral vein was observed and recorded.
A decapolar CS catheter was placed within the CS for mapping and pacing.
The intracardiac ultrasound catheter was positioned in the RA for continuous intracardiac ultrasound imaging.
Heparin bolus and infusion to target ACT at 300 -350 seconds was administered. Transseptal puncture was performed. This entailed advancing a sheath with dilator into the superior vena cava and withdrawing both (monitoring intracardiac ultrasound,
fluoroscopy and tip pressure) with the tip oriented toward the atrial septum. The fossa ovalis was engaged (indicated by sudden displacement of the sheath tip as well as tenting of the fossa seen on intracardiac ultrasound).
Transseptal puncture was performed. Left atrial catheter position was confirmed by echocardiographic imaging, pressure monitoring (LA mean pressure 12 mm Hg) and fluoroscopy. The sheath was advanced over the dilator and positioned in the left
atrium.
The Affera multipolar mapping/ablation Sphere-9 catheter was positioned through the transseptal sheath for high density mapping.
Geometry and voltage mapping was performed using the Respicardiaa mapping system for three-dimensional electroanatomical mapping.
Catheter positioning was guided and confirmed using both I.C.E. and fluoroscopy.
PV isolation approach was used to electrically isolate each PV ostia (LSPV, LIPV, RSPV, RIPV).
Additional energy applications/additional ablation set was required to accomplish wide area circumferential ablation around each of the pulmonary vein sets and additionally ablation to accomplish LA posterior wall ablation.
Remapping with the Sphere-9 catheter found that all PVPs were eliminated at each vein demonstrating entrance block. Also pacing around the the circumference of the ostia was performed at 10 ma and 2.0 msec output to assess for exit block. This
demonstrated electrical isolation at each of the pulmonary vein ostia (LSPV, LIPV, RSPV, RIPV). There is also entrance and exit block at the LA posterior wall.
Programmed electrostimulation failed to induce any sustained arrhythmias.
I.C.E. :
Pre-Ablation Post-Ablation
LVEF: 50-55 % 50-55 %
WMA: none none
Pericardial effusion: none none
COMPLICATIONS:
None
SUMMARY:
- Mapping and ablation to isolate the PVs
- Additional AF ablation set after PVI.
- 3-D Electroanatomical Mapping
- Intracardiac Ultrasound
- Ultrasound guidance for vascular access
Post ablation, I discussed today's findings and results with the patient's daughter, Irish.
RECOMMENDATIONS:
- Observe in monitored bed.
- Maintain oral anticoagulation.
- Office visit has been scheduled for January 14, 2025 with me in the office.
- Continue cardiovascular care with Dr Anny Felder
Copy to:
Dr Dk Guerrero
Dr Anny Felder
[2024-10-11 09:18] LABS: ACT-LR - POC 388 Seconds (116-155)
[2024-10-11 09:20] LABS: ACT-LR - POC > 397 Seconds (116-155)
[2024-10-11 09:20] LABS: ACT-LR - POC > 397 Seconds (116-155)
[2024-10-11] MEDS: ANESTHETIC LOZENGE 1 LOZENGE PO (10:12)
[2024-10-11] MEDS: TYLENOL 650 MG PO ×2 (10:12→13:46)
[2024-10-11] MEDS: DILAUDID 0.5 MG IV (10:42)
--- NOTE | 2024-10-11 11:24 | PTCARENOTE ---
Received patient from the EP lab at 1115 after PVI via right femoral vein. Patient is lying with HOB slightly elevated, in good spirits and comfortable. Dressing right groin is dry and intact with palpable right DP pulse. Monitoring VS, A paced on
the monitor. Reinforced importance of keeping legs flat and keeping his head on the pillow. Patient's daughter is at the bedside, call petit within reach.
--- NOTE | 2024-10-11 15:10 | PTCARENOTE ---
Patient resting comfortably in bed, dressing right groin is dry and intact, HOB elevated. Patient did not want to get oob at this time, instructed to call for assistance the first time he gets oob, he is agreeable, call petit in reach.
[2024-10-11] MEDS: PROTONIX 40 MG PO (17:47)
[2024-10-11] MEDS: XARELTO 20 MG PO (17:47)
--- NOTE | 2024-10-11 18:29 | PTCARENOTE ---
During rounds, noted that right groin dressing was saturated. Groin soft, no signs of hematoma, patient stated when he got back into bed he felt he had some bleeding. Dressing removed, no active bleeding noted but gauze was saturated. Pressure held
and new gauze and tegaderm applied.
[2024-10-11] MEDS: WELLBUTRIN XL (24 hour extended release) 150 MG PO (19:36)
[2024-10-11] MEDS: DESYREL 150 MG PO (22:50)
--- NOTE | 2024-10-12 02:41 | PTCARENOTE ---
Pt. remains A-paced in the 60's this shift, VSS. Right groin dressing with small amount of old drainage, no new growth since beginning of shift, no hematoma, pedal pulse palpable. Pt. has no complaints of pain/discomfort, ambulates without
difficulty. Currently sleeping.
[2024-10-12 03:39] VITALS: BP 126/81
[2024-10-12 04:30] LABS: Hematocrit 34.7 % (39.0-52.0); Mean Corp Hgb Conc. 34.6 g/dL (33.0-37.0); Mean Corpuscular Hgb 31.2 pg (27.0-31.0); Mean Corpuscular Volume 90.1 fL (80.0-94.0); Mean Platelet Volume 10.6 fL (7.4-10.4); Platelet Count 141 10^3/uL (130-400); Red Blood Cell Count 3.85 10^6/uL (4.70-6.10); Red Cell Dist. Width 13.3 % (11.5-14.5); White Blood Cell Count 12.2 10^3/uL (4.8-10.8)
[2024-10-12 04:52] LABS: Blood Urea Nitrogen 27 mg/dl (9-20); Calcium 9.2 mg/dl (8.4-10.2); Carbon Dioxide 23 mmol/L (22-30); Chloride 107 mmol/L (98-107); Estimated Creatinine Clearance 85 ml/min; Glucose 101 mg/dl (70-99); Magnesium 2.1 mg/dl (1.6-2.3); Potassium 4.2 mmol/L (3.5-5.1); Sodium 138 mmol/L (135-145); eGFR > 60.00
[2024-10-12 07:03] VITALS: BP 139/79
[2024-10-12] MEDS: COZAAR 100 MG PO (07:51)
[2024-10-12] MEDS: WELLBUTRIN XL (24 hour extended release) 150 MG PO (07:51)
[2024-10-12] MEDS: TOPROL XL 25 MG PO (07:51)
--- NOTE | 2024-10-12 08:41 | W.PN.CARDCBS ---
Addendum entered and electronically signed by Bimal Felder MD 10/12/24 12:35:
Patient seen, interviewed and examined by me.
Well-appearing, no acute distress
Regular rate and rhythm with normal S1 and S2, no S3 no S4. There is a grade 1/6 apical holosystolic murmur and no rubs. PMI is normally placed.
Lungs are clear to auscultation bilaterally without wheezes rales or rhonchi.
Abdomen soft nontender nondistended with normoactive bowel sounds
Extremities show trace pretibial edema bilaterally no clubbing or cyanosis.
Neurologic exam is grossly nonfocal.
He underwent successful PVI and posterior wall ablation for attempted rhythm control of atrial fibrillation yesterday.
Reviewed telemetry and he remains atrial paced with no sustained arrhythmias.
He has remained hemodynamically stable overnight.
I have reviewed yesterday's findings and results with him in detail and all of his questions have been answered.
Furthermore I have reviewed discharge instructions including activity restrictions.
- Maintain oral anticoagulation, rivaroxaban 20 mg daily.
- Office visit has been scheduled for January 14, 2025 with me in the office.
- Continue cardiovascular care with Dr Anny Felder
He is stable for discharge to home today.
Original Note:
Today's Communication / Plan
-
post ablation, stable for d/c home
Impression / Plan
-
Primary Care Provider: Dr Dk Guerrero
Primary Log Rafter: Dr Anny Felder
Impression:
Symptomatic paroxysmal Atrial Fibrillation.
post PVI 10/11/24
SSS post PPM 01/30/2024
Aflutter post ablation 2018
RBBB
HTN
HLD
PUD/GERD
Prostate cancer 2019
Plan:
post ablation feels good
groin stable
tele Apaced, RBBB
OAC Xarelto
continue metoprolol
Activity restrictions reviewed
f/u DCA in 2 mo
home today
08/20/24 ECHO - normal left ventricular size and function with ejection fraction of 55%, normal RV size and function, there is normal size right and left atria and no significant valvular disease
Progress Note - Log Rafter
Subjective
Date of Service: October 12, 2024
denies cp, mild sob with activity
Objective
Labs:
10/12/24 03:58
10/12/24 03:58
Labs
Hgb 12.0 g/dL (13.0-18.0) L 10/12/24 03:58
Hct 34.7 % (39.0-52.0) L 10/12/24 03:58
Plt Count 141 10^3/uL (130-400) 10/12/24 03:58
Sodium 138 mmol/L (135-145) 10/12/24 03:58
Potassium 4.2 mmol/L (3.5-5.1) 10/12/24 03:58
BUN 27 mg/dl (9-20) H 10/12/24 03:58
Creatinine 0.9 mg/dL (0.7-1.3) 10/12/24 03:58
Glucose 101 mg/dl (70-99) H 10/12/24 03:58
Vital Signs and I&O:
Vital Signs
Temp Pulse Resp BP Pulse Ox
98.1 F 63 16 126/81 98
10/12/24 06:59 10/12/24 06:59 10/12/24 06:59 10/12/24 03:39 10/12/24 08:00
Vital Signs
Temp Pulse Resp BP Pulse Ox
98.1 F 63 16 126/81 98
10/12/24 06:59 10/12/24 06:59 10/12/24 06:59 10/12/24 03:39 10/12/24 08:00
Intake & Output
10/10/24 10/11/24 10/12/24 10/13/24
06:59 06:59 06:59 06:59
Intake Total 960 / 960
Balance 960 / 960
Physical Exam
Physical Exam
NAD, AOx3
S1, S2, RRR
CTAB, non labored, no wheeze
SNTND bsx4, obese
R fem site c/d/i no HT, soft
--- NOTE | 2024-10-12 09:41 | W.DS.TRANS ---
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
-
Discharge Instructions:
Sleep Apnea Risk High
Discharge Diagnosis/Procedures AFib, s/p ablation
Diet Low Cholesterol
Driving Restrictions No driving for 24 hours
Instructions:
Stand-Alone Forms: DC Instructions- Cath/EP Lab
Changes to Home Medications: No
Discharge Medications:
DC Medications w/original date entered in [facility]
bupropion HCl 150 mg 24 hr tablet, extended release 150 mg PO BID Mental Health/Anxiety 11/13/18
losartan 50 mg tablet 100 mg PO DAILY Blood Pressure 11/13/18
esomeprazole magnesium 40 mg capsule,delayed release 40 mg PO QPM gerd 01/30/24
tadalafil 5 mg tablet (Cialis) 5 mg PO DAILYPRN PRN ED 01/30/24
psyllium husk 0.4 gram capsule (Metamucil) 3.2 g PO BID Gastrointestinal Issue 08/20/24
therapeutic multivitamin 1 tab PO BID Supplement 08/20/24
trazodone 50 mg tablet 150 mg PO HSPRN PRN sleep 08/20/24
vitamins A,C,L-ybtr-yglxtt 2,148 mcg-113 mg-45 mg-17.4 mg tablet (PreserVision AREDS) 1 tab PO HS Supplement 08/20/24
metoprolol succinate 25 mg tablet,extended release 24 hr 25 mg PO DAILY #30 tabs 08/22/24
sodium chloride 0.65 % nasal spray aerosol (Saline Nasal) 1 spray intranasal QIDPRN PRN nasal congestion #44 mL 08/22/24
rivaroxaban 20 mg tablet (Xarelto) 20 mg PO QPM 10/11/24
Home Medication Changes
Pending Results: No
[2024-10-12 09:51] VITALS: BP 126/75
--- NOTE | 2024-10-12 11:43 | PTCARENOTE ---
Pt received this am with no c/o offered. OOB ad lisa, gait steady. Right groin site dressing dry and intact, site soft and no bleeding or hematoma. Pt discharged to home with his daughter. Discharge instructions given and reviewed with good
understanding and all questions answered.
--- NOTE | 2024-10-12 11:59 | CM ---
spoke to pt in room, he is prev indep, lives alone in a 2 story home with 1 step to enter. he denies any dme's or dc planning needs. plan is for dc to home when medically stable.
== END 2024-10-12 12:14 | disposition home or self-care (01) ==
LOC: CATH 06:02
PROVIDERS: Nurse Practitioner; ATTENDING PHYSICIAN Internal Medicine Cardiovascular Disease; FAMILY PHYSICIAN Family Medicine; OTHER PHYSICIAN Internal Medicine Cardiovascular Disease
DX: I48.0 Paroxysmal atrial fibrillation (principal); I49.5 Sick sinus syndrome; Z79.01 Long term (current) use of anticoagulants; I48.92 Unspecified atrial flutter; I45.10 Unspecified right bundle-branch block; I10 Essential (primary) hypertension; E78.5 Hyperlipidemia, unspecified; K22.70 Barrett's esophagus without dysplasia; K21.9 Gastro-esophageal reflux disease without esophagitis; C61 Malignant neoplasm of prostate; Z85.46 Personal history of malignant neoplasm of prostate; K27.9 Peptic ulcer, site unspecified, unspecified as acute or chronic, without hemorrhage or perforation; Z79.899 Other long term (current) drug therapy
CPT/HCPCS: C1769; C1766; C1730; C1892; C1759; C1733; 80048; 83735; 85027; 85347; 93005; 93656; 93657; C1894

== ENCOUNTER 2024-10-14 12:40 | Emergency (ER) | payer MEDICARE, OTHER, SELFPAY ==
[2024-10-14 12:43] VITALS: BP 163/91
[2024-10-14 13:19] LABS: % Basophils 0.4 % (0-2); % Eosinophils 0.8 % (0-6); % Immature Granulocytes 0.4 % (0-0.5); % Lymphocytes 27.3 % (20.5-51.1); % Monocytes 8.6 % (1.7-9.3); % Neutrophils 62.5 % (42.2-75.2); Absolute Eosinophils 0.1 10^3/uL (0-0.7); Absolute Lymphocytes 2.2 10^3/uL (1.2-3.4); Absolute Monocytes 0.7 10^3/uL (0.1-0.6); Hematocrit 35.5 % (39.0-52.0); Hemoglobin 12.4 g/dL (13.0-18.0); Mean Corp Hgb Conc. 34.9 g/dL (33.0-37.0); Mean Corpuscular Hgb 31.5 pg (27.0-31.0); Mean Corpuscular Volume 90.1 fL (80.0-94.0); Mean Platelet Volume 10.5 fL (7.4-10.4); Nucleated Red Blood Cells % 0 % (-); Platelet Count 143 10^3/uL (130-400); Red Blood Cell Count 3.94 10^6/uL (4.70-6.10); Red Cell Dist. Width 12.9 % (11.5-14.5)
[2024-10-14 13:32] LABS: INR 2.14; PT 24.4 Sec (11.4-14.6)
[2024-10-14 13:33] LABS: ALT (SGPT) 34 U/L (0-50); AST (SGOT) 29 U/L (17-59); Albumin 4.6 g/dl (3.5-5.0); Alkaline Phosphatase 83 U/L (38-126); Blood Urea Nitrogen 20 mg/dl (9-20); Calcium 9.1 mg/dl (8.4-10.2); Carbon Dioxide 25 mmol/L (22-30); Chloride 105 mmol/L (98-107); Glucose 94 mg/dl (70-99); Potassium 4.8 mmol/L (3.5-5.1); Sodium 139 mmol/L (135-145); Total Bilirubin 0.8 mg/dl (0.2-1.3); Total Protein 7.1 g/dl (6.3-8.2); eGFR > 60.00
--- NOTE | 2024-10-14 17:07 | ED.GENMED ---
History of Present Illness
General
Chief Complaint: Breathing Problem
Source: patient
Exam Limitations: none
Time Seen by Provider: 10/14/24 16:38
Nursing documentation reviewed up to this point in time: agreed with
History of Present Illness
History of Present Illness:
Patient is a 73-year-old male 3 days s/p cardiac ablation presenting to the emergency department with worsening bruising in groin along with exertional shortness of breath. Patient reports noticing dyspnea with walking up stairs yesterday. He also
notes that bruising in his right groin has increased over the past few days. He denies any pain or significant swelling in right groin. Patient denies any chest pain. No back pain, numbness/tingling, lightheadedness.
Patient has been anticoagulant with Xarelto since ablation.
Patient follows with Dr. Anny Felder as primary doormaker. Cardiac ablation was performed by Dr. Bimal Felder.
Past History
Past History
ED Past Medical History: Cancer, GERD, HTN, Hypercholesterolemia, Other and Other
ED Past Surgical History: Other
Social History
Tobacco: Former smoker
Alcohol: Occasional
Drug: None
Living: with family
Employment: Employed
Family History
Family History: Other
Review of Systems
Review of Systems
Allergies reviewed?: Yes
All Other Systems: ROS reviewed and negative except as documented in HPI and ROS
Phy Exam
Physical Exam
Physical Exam:
Vitals: Hypertensive, otherwise vital signs stable. Afebrile
General: Patient is well appearing, no acute distress. Nontoxic appearing
Skin: Warm and dry. Ecchymoses of right inguinal region as described below.
Head: Normocephalic, atraumatic
Eyes: Sclera nonicteric. EOMs intact. No nystagmus.
Throat: Protecting airway
Neck: Normal ROM, no cervical spine tenderness, no meningismus
Cardiac: Regular rate and rhythm, no murmurs. 2+ radial pulses bilaterally.
Pulm: Normal respiratory effort, no wheezes, rales, rhonchi heard on exam.
Abdomen: Abdomen soft and nontender.
Extremities: Area of ecchymoses in right inguinal region near femoral access site without significant swelling. No tenderness. No bruit. 2+ palpable right femoral pulse.
Neuro: AAOx3. CN II-XII intact. No focal neurologic deficits.
Psychiatric: Normal affect.
Scores
Heart Failure Risk
Heart Failure Risk Score: Not Applicable
Course
Orders/Labs/Results
Orders:
Orders
10/14/24 12:42
Electrocardiogram (*1) Urgent
Reason for Study: Shortness of Breath
EKG- Treatment ONCE
10/14/24 12:55
Complete Blood Count/With Diff Urgent
Comprehensive Metabolic Panel Urgent
NT-proBNP Urgent
Comment: ADD ON
Prothrombin Time Urgent
10/14/24 17:14
pacemaker [Interrogate Pacemaker- Treatment] ONCE
10/14/24 17:32
Add On- LAB Urgent
Tests Added?: Pro-BNP
10/14/24 18:44
CXR2 [CR Chest - 2 Views ] Urgent
Comment:
Reason For Exam: shortness of breath
Abnormal Lab Results
10/14/24
12:55
RBC 3.94 L 10^6/uL
(4.70-6.10)
Hgb 12.4 L g/dL
(13.0-18.0)
Hct 35.5 L %
(39.0-52.0)
MCH 31.5 H pg
(27.0-31.0)
MPV 10.5 H fL
(7.4-10.4)
Absolute Monos (auto) 0.7 H 10^3/uL
(0.1-0.6)
PT 24.4 H Sec
(11.4-14.6)
10/14/24 12:55
10/14/24 12:55
Vital Signs
Initial and Last Documented VS:
Initial Vital Signs
Temp Pulse Resp BP Pulse Ox
97.9 F 86 20 163/91 98
10/14/24 12:43 10/14/24 12:43 10/14/24 12:43 10/14/24 12:43 10/14/24 12:43
Last Documented Vital Signs
Temp Pulse Resp BP Pulse Ox
97.6 F 63 18 141/86 100
10/14/24 17:42 10/14/24 19:44 10/14/24 19:44 10/14/24 19:44 10/14/24 19:44
MDM/Problems Addressed
Differential Diagnosis Includes:
Not limited to: Normal postoperative course, postoperative ecchymoses, hematoma, pseudoaneurysm, CHF, pericardial, pleural effusion, etc.
MDM/Problems Addressed:
73-year-old male currently 3 days status post cardiac ablation presenting with worsening ecchymoses of right inguinal catheter site and exertional shortness of breath. He has not noticed any pain or swelling in catheter site. No chest pain.
Patient has stable vital signs. He is not hypoxic. Physical exam as above. Cardio/pulmonary assessment unremarkable. He is in no apparent respiratory stress without any evidence of lower extremity edema. There is ecchymoses of right inguinal
region without any active bleeding. There is no tenderness in this area or significant swelling. There is no bruit. Basic labs were initiated in triage without any clinically significant abnormalities. Hemoglobin is stable. Case was discussed
with cardiology, as well as sent pictures of patient's catheter site and wire inguinal region. Given patient has no swelling, bruit, or tenderness in regions do not suspect pseudoaneurysm. Cardiology feels appearance of ecchymosis is to be
expected after cardiac ablation given patient is currently anticoagulated. Did discuss this with patient at bedside including the fact that ecchymoses may continue to spread.
In regard to exertional shortness of breath�proBNP and chest x-ray were obtained without any significant abnormalities. No pleural effusion or pulmonary edema noted on x-ray. Pacemaker was interrogated which would be functioning at baseline
without any arrhythmias since cardiac ablation. Walking pulse ox obtained patient remained at 96-99% on room air. Patient remains very well and comfortable appearing. At this point�feel patient stable for discharge home with cardiology follow-up.
Discussed with patient he was comfortable with plan. Case discussed with attending physician.
Chronic conditions affecting care:
Atrial fibrillation s/p recent cardiac ablation, hypertension
Acute Exacerbation and/or Progression of Chronic Illness:
Acutely hypertensive
*Radiology
Radiology exam reviewed: preliminary read by ED provider (Chest x-ray reviewed by md-no acute abnormality) and radiology read reviewed
*Pulse Oximetry
Patient hypoxic: no
*EKG
Interpreted by ED Provider?: Yes
EKG Intrepretation Date: 10/14/24
Interpretation: abnormal
Comparison EKG: no changes
Heart Rate: 75
Rate: normal
Rhythm: other (Atrial paced)
[place]: normal axis
Interval: normal QT interval
QRS Pattern: right bundle branch block
Ischemia: no ischemia
*Application Support Developer Interpretation
Rate: normal
Interpretation: normal
Heart Rate: 82
Rhythm: sinus
*Critical Care Note
Total Time (30-74mins, 75-104mins- exclusive of procedures): Not Applicable
Patient Management
Discussion with other providers: Mixer Operator (Case was discussed with cardiology, Dr. Johnson)
ED Attending Note
-
Portions of this chart may have been created with voice recognition software.� Occasional wrong word or��sound alike� substitutions may have occurred due to the inherent limitations of voice recognition software.
Discharge Plan
Departure
Patient Disposition: Home (Routine Discharge)
Date of Disposition: 10/14/24
Time of Disposition: 19:34
Patient with high blood pressure during this ER visit?: Yes
Condition: Good
Covid-19: Not Applicable
Discharge Problem:
Ecchymosis of right groin, Dyspnea
Instructions: Shortness of Breath (Dyspnea) (DC), BLOOD PRESSURE
Prescriptions:
No Action
losartan 50 MG tablet
100 mg PO DAILY
bupropion HCl 150 MG tablet extended release 24 hr
150 mg PO BID
tadalafil [Cialis] 5 mg Tablet
5 mg PO DAILYPRN PRN (Reason: ED)
esomeprazole magnesium 40 mg Capsule,Delayed Release(Dr/Ec)
40 mg PO QPM
trazodone 50 mg Tablet
150 mg PO HSPRN PRN (Reason: sleep)
therapeutic multivitamin Tablet
1 tab PO BID
PreserVision AREDS 2,148 mcg-113 mg-45 mg-17.4mg Tablet
1 tab PO HS
psyllium husk [Metamucil] 0.4 gram Capsule
3.2 g PO BID
Saline Nasal 0.65 % Aerosol,[place]
1 spray intranasal QIDPRN PRN (Reason: nasal congestion) Qty: 44 0RF
metoprolol succinate 25 mg Tablet Extended Release 24 Hr
25 mg PO DAILY Qty: 30 0RF
Xarelto 20 mg Tablet
20 mg PO QPM
Referrals:
Dk Guerrero DO [Family Provider] -
Bimal Felder MD [Active] - Call in 1-3 days for appt
Activity Restrictions/Additional Instructions:
Return to the emergency department with any chest pain, shortness of breath, lightheadedness, significant pain or swelling of right groin site, bleeding from groin to the will not stop, worsening current symptoms, or any other concerns
- As discussed�bruising may persist/worsen over the next 2 days. You may see bruising spread down your right leg. However�if you notice any significant pain or rapidly increasing bruising/swelling in the area please return immediately to the
emergency department
- Your lab work and chest x-ray showed no acute abnormalities. Please return with any worsening shortness of breath
- Continue to take all your medications as prescribed.
- Follow-up with cardiology as scheduled for further evaluation/management. Contact doormaker office tomorrow to let them know that you were seen in the emergency department.
Monitor your symptoms closely and return to the emergency department with any acute worsening/new symptoms or any other concerns
Interventions
Interventions:
*Risk Screen - Suicide Last Done: 10/14/24 17:42
*General Assessment Last Done: 10/14/24 12:43
*Neglect/Abuse Screening Last Done: 10/14/24 12:43
*ED- Fall Risk Assessment Last Done: 10/14/24 17:42
*ED COVID-19 Vaccine History Last Done: 10/14/24 17:42
*Nursing Disposition Last Done: 10/14/24 19:46
ED- Cardiac Assessment Last Done: 10/14/24 17:42
ED- Pulmonary Assessment Last Done: 10/14/24 17:42
Discharge Date and Time
Discharge Date/Time: 10/14/24 19:47
Print Language: DIVEHI
[2024-10-14 17:42] VITALS: BP 138/89; BMI 39.0
--- NOTE | 2024-10-14 18:33 | EDRN ---
the pt is refusing to go to xray, the pt stated to this RN that he wants to be discharged, this RN notified Lay BERRY
[2024-10-14 18:34] LABS: NT-proBNP 231 pg/ml
[2024-10-14 19:44] VITALS: BP 141/86
== END 2024-10-14 19:47 | disposition home or self-care (01) ==
LOC: EMR 12:40
PROVIDERS: Emergency Medicine; EMERGENCY PHYSICIAN Student in an Organized Health Care Education/Training Program; FAMILY PHYSICIAN Family Medicine
DX: S30.1XXA Contusion of abdominal wall, initial encounter (principal); R06.00 Dyspnea, unspecified; X58.XXXA Exposure to other specified factors, initial encounter; I45.10 Unspecified right bundle-branch block; I10 Essential (primary) hypertension; E78.00 Pure hypercholesterolemia, unspecified; K21.9 Gastro-esophageal reflux disease without esophagitis; M19.90 Unspecified osteoarthritis, unspecified site; I48.91 Unspecified atrial fibrillation; I48.92 Unspecified atrial flutter; K57.90 Diverticulosis of intestine, part unspecified, without perforation or abscess without bleeding; K44.9 Diaphragmatic hernia without obstruction or gangrene; F31.9 Bipolar disorder, unspecified; F32.A Depression, unspecified; Z95.0 Presence of cardiac pacemaker; Z98.890 Other specified postprocedural states; Z79.02 Long term (current) use of antithrombotics/antiplatelets; Z87.891 Personal history of nicotine dependence; Z86.16 Personal history of COVID-19; Z87.11 Personal history of peptic ulcer disease; Z85.46 Personal history of malignant neoplasm of prostate; Z88.2 Allergy status to sulfonamides; Z88.8 Allergy status to other drugs, medicaments and biological substances; Z88.1 Allergy status to other antibiotic agents; Z91.041 Radiographic dye allergy status
CPT/HCPCS: 99284; 93288; 71046; 80053; 83880; 85025; 85610; 93005

== ENCOUNTER → 2025-01-06 09:21 | Outpatient (REF) | payer MEDICARE, OTHER, SELFPAY ==
[2025-01-06 10:16] LABS: Hematocrit 39.4 % (39.0-52.0); Hemoglobin 13.8 g/dL (13.0-18.0); Mean Corp Hgb Conc. 35.0 g/dL (33.0-37.0); Mean Corpuscular Volume 89.5 fL (80.0-94.0); Nucleated Red Blood Cells % 0 % (-); Platelet Count 156 10^3/uL (130-400); Red Cell Dist. Width 12.2 % (11.5-14.5)
[2025-01-06 10:44] LABS: ALT (SGPT) 34 U/L (0-50); AST (SGOT) 26 U/L (17-59); Albumin 4.7 g/dl (3.5-5.0); Alkaline Phosphatase 69 U/L (38-126); Blood Urea Nitrogen 32 mg/dl (9-20); Calcium 9.5 mg/dl (8.4-10.2); Carbon Dioxide 26 mmol/L (22-30); Chloride 103 mmol/L (98-107); Glucose 107 mg/dl (70-99); HDL Cholesterol 31 mg/dl; LDL Cholesterol, Calculated 116 mg/dl; Potassium 4.7 mmol/L (3.5-5.1); Sodium 138 mmol/L (135-145); Total Protein 7.6 g/dl (6.3-8.2); Very Low Density Lipoprotein 25 mg/dl (0-30); eGFR > 60.00
[2025-01-06 10:55] LABS: Urine Character Clear (Clear)
[2025-01-06 11:15] LABS: PSA, Total - Diagnostic < 0.06 ng/ml (0.0-4.0); TSH 1.83 uIU/ml (0.47-4.68)
[2025-01-06 13:23] LABS: Urine Urothelial Cell 0-2 /LPF (FEW); Urine White Cell 0-2 /HPF (0-5)
== END ==
LOC: RAD 09:21
PROVIDERS: ATTENDING PHYSICIAN Family Medicine
DX: M25.562 Pain in left knee (principal); S93.402A Sprain of unspecified ligament of left ankle, initial encounter; I10 Essential (primary) hypertension; E01.0 Iodine-deficiency related diffuse (endemic) goiter; F42.2 Mixed obsessional thoughts and acts; C61 Malignant neoplasm of prostate
CPT/HCPCS: 36415; 73564; 73610; 80053; 80061; 81003; 81015; 84153; 84443; 85025

== ENCOUNTER → 2025-01-11 09:57 | Outpatient (REF) | payer MEDICARE, OTHER, SELFPAY ==
[2025-01-11 10:55] LABS: Urine Character Clear (Clear)
[2025-01-11 11:21] LABS: Urine Red Blood Cell 0-2 /HPF (0-2); Urine Squamous Cell 0-2 /LPF (Few); Urine White Cell 0-2 /HPF (0-5)
== END ==
LOC: REG 09:57
PROVIDERS: ATTENDING PHYSICIAN Family Medicine
DX: R31.9 Hematuria, unspecified (principal)
CPT/HCPCS: 81003; 81015; 88112

== ENCOUNTER → 2025-04-08 13:32 | Outpatient (REF) | payer MEDICARE, OTHER, SELFPAY | LOC: MRI 13:32 | PROVIDERS: ATTENDING PHYSICIAN Orthopaedic Surgery; FAMILY PHYSICIAN Family Medicine | DX: M25.562 Pain in left knee (principal) | CPT/HCPCS: 73721 ==